=== PATIENT | male | born 1960 | race Caucasian/White ===

== ENCOUNTER 2018-04-23 07:09 | Inpatient (IN) | payer OTHER ==
--- NOTE | 2018-04-23 10:11 | ER Document Report ---
Doctor's Note Notes: 04/23/18 10:12 Room 13: This is a male in his 50s to the emergency department for evaluation of shortness of breath. Patient states that over the last several days he has had increased shortness of breath. Increased cough and wheeze. Often times his fingers get numb. Yesterday he felt like he was going to pass out. Having some tightness in the chest as well. Has had a workup in the past for heart problems. Family history of heart disease. Has some nitroglycerin. Decided to take some about 4 days ago. Denies any fever, chills, sweats. Does not smoke and is a smoker. Denies any other major issues at this time. Past medical history: Hypertension, COPD Past surgical history: Right nephrectomy Social history: Does smoke cigarettes. Denies any significant alcohol or drug abuse. Family history: Significant for coronary artery disease, COPD, hypertension Review of systems: Constitutional: denies: Chills, Diaphoresis, Fever, Malaise, Weakness EENT: denies: Eye discharge, Blurred vision, Tearing, Double vision, Nose congestion, Nose discharge, Throat swelling, Mouth pain Cardiovascular: denies: Does complain of tightness in the chest but no significant chest pain. No syncope. Respiratory: Does complain of shortness of breath, cough, wheezing Gastrointestinal: denies: Abdominal pain, Diarrhea, Nausea, Vomiting, Black stools, bright red blood in stool Genitourinary: denies: Burning, Dysuria, Discharge, Frequency, Flank pain, Hematuria Musculoskeletal: denies: Joint pain, Joint swelling, Muscle pain, Muscle stiffness, back pain Hematologic/Lymphatic: denies: Anemia, Easy bleeding, Easy bruising, Blood clots Neurological/Psychological: denies: Confusion, Dementia, Depression, Loss of consciousness Skin: No lesions, no masses, no skin breakdown, no abscesses Physical exam: General: Alert no acute distress HEENT: Atraumatic, normocephalic, pupils equal round react to light and accommodation, extraocular muscles are intact, nose is non tender, posterior pharynx is without erythema or exudate. Tongue is unremarkable Heart: Heart with regular rate and rhythm, no murmurs, no rubs, no clicks Lungs: Patient does have crackles and minimal wheezes bilaterally. Moving air. Equal chest rise. Abdomen: Abdomen is soft, nondistended, normal bowel sounds. Does complain of intermittent abdominal pain. Neuro: cranial nerves II through XII intact, reflexes intact, sensation intact, Musculoskeletal/Extremities:Moving all extremities. Equal strength bilaterally in the upper lower extremities. No significant deformity. No significant edema bilaterally of the upper lower extremities. Negative Homans. Pulses present bilateral lower extremities Skin: No lesions. Skin intact Discharge - Discharge Clinical Impression: Chest pain Qualifiers: Chest pain type: unspecified Qualified Code(s): R07.9 - Chest pain, unspecified Condition: Good Disposition: ADMITTED OBSERVATION Admitting Provider: Hospitalist - [facility] Unit Admitted: Telemetry Referrals: DALJIT GOMEZ PA-C [Primary Care Provider] - Follow up as needed Course - Re-evaluation Re-evalutation: 04/23/18 12:28 At this time patient's troponin is slightly elevated. Allergic to aspirin so given Plavix. Will admit to the hospital for further testing. 04/23/18 12:29 Laboratory 04/23/18 04/23/18 04/23/18 07:59 07:59 07:59 WBC 5.8 RBC 5.80 H Hgb 19.5 H Hct 56.0 H MCV 97 MCH 33.7 H MCHC 34.9 RDW 13.0 Plt Count 198 Seg Neutrophils % 56.1 Lymphocytes % 30.3 Monocytes % 9.8 Eosinophils % 2.9 Basophils % 0.9 Absolute Neutrophils 3.3 Absolute Lymphocytes 1.8 Absolute Monocytes 0.6 Absolute Eosinophils 0.2 Absolute Basophils 0.0 Sodium 138.8 Potassium 4.6 Chloride 103 Carbon Dioxide 27 Anion Gap 9 BUN 15 Creatinine 1.24 Est GFR ( Amer) > 60 Est GFR (Non-Af Amer) > 60 Glucose 108 Calcium 9.8 Total Bilirubin 0.6 Direct Bilirubin 0.4 Neonat Total Bilirubin Not Reportable Neonat Direct Bilirubin Not Reportable Neonat Indirect Bili Not Reportable AST 37 ALT 41 Alkaline Phosphatase 67 Troponin I 0.042 NT-Pro-B Natriuret Pep 90 Total Protein 8.2 Albumin 4.4 Chest X-Ray 04/23/18 00:00 IMPRESSION: NO ACUTE RADIOGRAPHIC FINDING IN THE CHEST. - Vital Signs Vital signs: Temp Pulse Resp BP Pulse Ox 15 97 04/23/18 10:09 04/23/18 10:09 - Laboratory Result Diagrams: 04/23/18 07:59 04/23/18 07:59 Laboratory results interpreted by me: 04/23/18 07:59 RBC 5.80 H Hgb 19.5 H Hct 56.0 H MCH 33.7 H - EKG Interpretation by Me EKG shows normal: Sinus rhythm, [place], Intervals, QRS Complexes, ST-T Waves
--- NOTE | 2018-04-23 10:35 | RADIOLOGY REPORT (SQ) ---
EXAM DESCRIPTION: CHEST 2 VIEWS COMPLETED DATE/TIME: 04/23/2018 9:28 am REASON FOR STUDY: SOB AND CHEST PAIN COMPARISON: None. EXAM PARAMETERS: NUMBER OF VIEWS: two views TECHNIQUE: Digital Frontal and Lateral radiographic views of the chest acquired. RADIATION DOSE: NA LIMITATIONS: none FINDINGS: LUNGS AND PLEURA: No opacities, masses or pneumothorax. No pleural effusion. MEDIASTINUM AND HILAR STRUCTURES: No masses or contour abnormalities. HEART AND VASCULAR STRUCTURES: Heart normal size. No evidence for failure. BONES: No acute findings. HARDWARE: None in the chest. OTHER: No other significant finding. IMPRESSION: NO ACUTE RADIOGRAPHIC FINDING IN THE CHEST. TECHNICAL DOCUMENTATION: JOB ID: [id number] [employer]- All Rights Reserved Reading location - IP/workstation name: [email or web address]
[2018-04-23 10:46] LABS: ALANINE AMINOTRANSFERASE 41 U/L (21-72); ALBUMIN 4.4 g/dL (3.5-5.0); ALKALINE PHOSPHATASE 67 U/L (38-126); ANION GAP 9 (5-19); ASPARTATE AMINO TRANSFERASE 37 U/L (17-59); BILIRUBIN,DIRECT 0.4 mg/dL (0.0-0.4); BILIRUBIN,TOTAL 0.6 mg/dL (0.2-1.3); BLOOD UREA NITROGEN 15 mg/dL (7-20); CALCIUM 9.8 mg/dL (8.4-10.2); CARBON DIOXIDE 27 mmol/L (22-30); CHLORIDE 103 mmol/L (98-107); GLUCOSE 108 mg/dL (75-110); POTASSIUM 4.6 mmol/L (3.6-5.0); SODIUM 138.8 mmol/L (137-145); TOTAL PROTEIN 8.2 g/dL (6.3-8.2)
[2018-04-23 11:15] LABS: TROPONIN I 0.042 ng/mL
[2018-04-23 11:18] LABS: ABSOLUTE EOSINOPHILS # (AUTO) 0.2 10^3/uL (0.0-0.6); ABSOLUTE LYMPHOCYTES (AUTO) 1.8 10^3/uL (0.5-4.7); ABSOLUTE MONOCYTES (AUTO) 0.6 10^3/uL (0.1-1.4); ABSOLUTE NEUT (AUTO) 3.3 10^3/uL (1.7-8.2); BASOPHILS % (AUTO) 0.9 % (0-2); EOSINOPHILS % (AUTO) 2.9 % (0-6); HEMOGLOBIN 19.5 g/dL (13.5-17.0); LYMPHOCYTES % (AUTO) 30.3 % (13-45); MEAN CORPUSCULAR HEMOGLOBIN 33.7 pg (27.0-33.4); MEAN CORPUSCULAR HGB CONC 34.9 g/dL (32.0-36.0); MEAN CORPUSCULAR VOLUME 97 fl (80-97); MONOCYTES % (AUTO) 9.8 % (3-13); PLATELET COUNT 198 10^3/uL (150-450); SEGMENTED NEUTROPHILS % (AUTO) 56.1 % (42-78); TOTAL CELLS COUNTED % (AUTO) 100 %; WHITE BLOOD COUNT 5.8 10^3/uL (4.0-10.5)
[2018-04-23] MEDS ORDERED: NITROGLYCERIN 2% OINTMENT 1 GM PACKET TP ONE (11:20)
[2018-04-23] MEDS ORDERED: CLOPIDOGREL BISULFATE 300 MG TABLET PO ONE (11:20)
[2018-04-23] MEDS ORDERED: ACETAMINOPHEN 325 MG TABLET PO ONE (12:49)
--- NOTE | 2018-04-23 13:24 | RADIOLOGY REPORT (SQ) ---
EXAM DESCRIPTION: U/S ABDOMEN COMPLETE W/DOPPLER COMPLETED DATE/TIME: 04/23/2018 1:02 pm REASON FOR STUDY: diffuse abd pain, COMPARISON: 11/24/2015 TECHNIQUE: Dynamic and static grayscale images acquired of the abdomen and recorded on PACS. Additio aurelio selected color Doppler and spectral images recorded. LIMITATIONS: Body habitus. Bowel gas. FINDINGS: PANCREAS: Not seen. LIVER: No masses. Increased echogenicity. LIVER VASCULATURE: Normal directional flow of the main portal vein and hepatic veins. GALLBLADDER: No stones. Normal wall thickness. No pericholecystic fluid. ULTRASOUND-DETECTED COLEMAN'S SIGN: Negative. INTRAHEPATIC DUCTS AND COMMON DUCT: Common bile duct is borderline at 6 mm. INFERIOR VENA CAVA: Not imaged. AORTA: No aneurysm. The midportion of the aorta was not well seen, however. RIGHT KIDNEY: Surgically absent. LEFT KIDNEY: Compensatory hypertrophy. 15.8 cm. Normal echogenicity. No solid or suspicious mas ses. No hydronephrosis. No calcifications. SPLEEN: Normal size. No solid masses. PERITONEAL AND PLEURAL SPACES: No ascites or effusions. OTHER: No other significant finding. IMPRESSION: Fatty infiltration of the liver. Borderline common bile duct. Correlate for biliary ob struction. TECHNICAL DOCUMENTATION: JOB ID: [id number] [employer]- All Rights Reserved Reading location - IP/workstation name: [email or web address]
[2018-04-23 13:42] LABS: AMORPHOUS SEDIMENT,URINE 2+ /HPF; APPEARANCE,URINE TURBID; BILIRUBIN,URINE NEGATIVE (NEGATIVE); GLUCOSE, URINE NEGATIVE (NEGATIVE); KETONES,URINE NEGATIVE (NEGATIVE); LEUKOCYTE ESTERASE,URINE TRACE (NEGATIVE); NITRITE,URINE NEGATIVE (NEGATIVE); PROTEIN,URINE 100 mg/dL (NEGATIVE); URINE SPECIFIC GRAVITY 1.025; UROBILINOGEN,URINE NEGATIVE mg/dL (<2.0)
[2018-04-23 13:52] LABS: COLOR,URINE YELLOW
[2018-04-23] MEDS ORDERED: GUAIFENESIN SYRP 200 MG/10 ML UDC PO PRN (14:43)
[2018-04-23] MEDS ORDERED: NORMAL SALINE 1000 ML 1,000 ML IV PRN (14:43)
[2018-04-23] MEDS: IPRATROPIUM/ALBUTEROL 0.5-2.5 MG/3 ML AMPUL NEB PRN (15:42)
[2018-04-23] MEDS ORDERED: IPRATROPIUM/ALBUTEROL 0.5-2.5 MG/3 ML AMPUL NEB SCH (16:00)
[2018-04-23] MEDS: VALSARTAN 80 MG TABLET PO SCH (18:08)
[2018-04-23] MEDS: PREDNISONE 20 MG TABLET PO SCH (18:16)
[2018-04-23] MEDS: LANSOPRAZOLE 30 MG TAB.RAP.DR PO SCH (18:16)
--- NOTE | 2018-04-23 18:36 | EKG REPORT ---
SEVERITY:- NORMAL ECG - SINUS RHYTHM : Confirmed by: Salazar Lawson MD 23-Apr-2018 18:36:21
[2018-04-23] MEDS ORDERED: ACETAMINOPHEN 325 MG TABLET PO PRN (20:49)
--- NOTE | 2018-04-23 21:19 | RADIOLOGY REPORT (SQ) ---
PROCEDURE: CT OF THE ABDOMEN AND PELVIS WITH INTRAVENOUS CONTRAST HISTORY: Abdominal Pain, Hematuria Indication: Same as above Comparison: 11/13/2017 . Technique: CT of the abdomen and pelvis was done with intravenous contrast. Images were obtained from the lung base to the level of the pubic symphysis in axial plane, followed by orthogonal sagittal and coronal reconstruction. Oral contrast was not given for the study. The patient was injected with radiographic contrast intravenously, without any documented immediate adverse reactions. This exam was performed according to our departmental dose-optimization program, which includes automated exposure control, adjustment of the mA and/or KV according to the patient's size and/or use of iterative reconstruction technique. FINDINGS: Images through the lung bases do not show any focal infiltrates or pleural effusions. The gallbladder, pancreas, spleen and the bilateral adrenal glands appear unremarkable. There is fatty metamorphosis of the liver The right kidney surgically absent. The left kidney enhances in a normal fashion The urinary bladder is unremarkable . The small bowel appears unremarkable, without any evidence of small bowel obstruction or bowel wall thickening. There is no CT evidence of acute appendicitis, pericecal inflammatory change or ileocecal mesenteric adenitis. The ileocecal junction appears unremarkable. There is no CT evidence of acute colonic diverticulitis or colitis or large bowel obstruction. There is large bowel diverticulosis The splenic and portal veins are of normal caliber, without any filling defects. There is no pathological lymphadenopathy in the retroperitoneum or in the pelvic region. There is no evidence of free fluid or free air in the abdomen or the pelvic region. There is no clinically significant abdominal aortic aneurysm. There is no clinically significant inguinal or ventral hernia. The visualized lumbar spine is unremarkable . The paravertebral soft tissues are unremarkable. The remainder of the pelvic structures are unremarkable. IMPRESSION: Fatty metamorphosis of the liver. Large bowel diverticulosis, without acute diverticulitis. Prior right nephrectomy. Location of Interpretation: Teleradiology
[2018-04-23] MEDS: ATORVASTATIN CALCIUM 40 MG TABLET PO SCH (23:41)
[2018-04-23] MEDS: HEPARIN SOD (PORCINE) 5,000 UNIT/ML 1 ML SYRINGE SUBCUT SCH (23:42)
[2018-04-24] MEDS: IPRATROPIUM/ALBUTEROL 0.5-2.5 MG/3 ML AMPUL NEB PRN (05:15)
[2018-04-24 05:17] LABS: APPEARANCE,URINE CLEAR; BILIRUBIN,URINE NEGATIVE (NEGATIVE); COLOR,URINE YELLOW; GLUCOSE, URINE NEGATIVE (NEGATIVE); KETONES,URINE NEGATIVE (NEGATIVE); LEUKOCYTE ESTERASE,URINE NEGATIVE (NEGATIVE); NITRITE,URINE NEGATIVE (NEGATIVE); PROTEIN,URINE NEGATIVE (NEGATIVE); URINE SPECIFIC GRAVITY 1.024; UROBILINOGEN,URINE NEGATIVE mg/dL (<2.0)
[2018-04-24] MEDS: HEPARIN SOD (PORCINE) 5,000 UNIT/ML 1 ML SYRINGE SUBCUT SCH ×3 (05:31→23:18)
[2018-04-24] MEDS: LANSOPRAZOLE 30 MG TAB.RAP.DR PO SCH ×2 (05:32→17:58)
[2018-04-24 05:33] LABS: HEMATOCRIT 50.8 % (37.9-51.0); HEMOGLOBIN 17.6 g/dL (13.5-17.0); MEAN CORPUSCULAR HEMOGLOBIN 33.6 pg (27.0-33.4); MEAN CORPUSCULAR HGB CONC 34.6 g/dL (32.0-36.0); MEAN CORPUSCULAR VOLUME 97 fl (80-97); PLATELET COUNT 178 10^3/uL (150-450); RED BLOOD COUNT 5.23 10^6/uL (4.35-5.55); RED CELL DISTRIBUTION WIDTH 12.7 % (11.5-14.0); WHITE BLOOD COUNT 6.1 10^3/uL (4.0-10.5)
[2018-04-24 06:06] LABS: ALANINE AMINOTRANSFERASE 36 U/L (21-72); ALBUMIN 4.1 g/dL (3.5-5.0); ALKALINE PHOSPHATASE 54 U/L (38-126); ANION GAP 11 (5-19); ASPARTATE AMINO TRANSFERASE 29 U/L (17-59); BILIRUBIN,DIRECT 0.3 mg/dL (0.0-0.4); BILIRUBIN,TOTAL 0.8 mg/dL (0.2-1.3); BLOOD UREA NITROGEN 16 mg/dL (7-20); CALCIUM 9.4 mg/dL (8.4-10.2); CARBON DIOXIDE 22 mmol/L (22-30); CHLORIDE 102 mmol/L (98-107); GLUCOSE 131 mg/dL (75-110); POTASSIUM 4.8 mmol/L (3.6-5.0); SODIUM 134.9 mmol/L (137-145); TOTAL PROTEIN 7.2 g/dL (6.3-8.2)
[2018-04-24] MEDS ORDERED: AMLODIPINE BESYLATE 5 MG TABLET PO SCH (10:00)
[2018-04-24] MEDS: CLOPIDOGREL BISULFATE 75 MG TABLET PO SCH (10:47)
[2018-04-24] MEDS: VALSARTAN 80 MG TABLET PO SCH (10:47)
[2018-04-24] MEDS: PREDNISONE 20 MG TABLET PO SCH (10:47)
--- NOTE | 2018-04-24 13:15 | EKG REPORT ---
SEVERITY:- NORMAL ECG - SINUS RHYTHM : Confirmed by: Salazar Lawson MD 24-Apr-2018 13:14:28
--- NOTE | 2018-04-24 13:51 | DRAGON STRESS TEST REPORT ---
INTRAVENOUS LEXISCAN CARDIOLITE STRESS TEST USING SINGLE PHOTON EMMISION COMPUTERIZED TOMOGRAPHIC. DATE OF PROCEDURE: April 24, 2018, INDICATION : Chest pain, hypertension, family history of premature CAD RESTING EKG: Sinus rhythm, otherwise WNL STRESS EKG: No significant ST segment changes noted with LexiScan bolus REASON FOR TERMINATION: Protocol. PROCEDURE REPORT: Baseline heart rate 74 beats per minute with blood pressure of 157/88. Patient had no significant complaints. Patient was bolused with Lexiscan 0.4 mg intravenously followed by saline bolus. Heart rate at 2 minutes post bolus 122 with a blood pressure of 192/100. 3 minutes post bolus heart rate 116 with blood pressure of 164/100. No significant EKG changes were noted. Patient had no significant complaints during the procedure or postprocedure. CONCLUSIONS: Normal EKG and hemodynamic response to IV LexiScan. NUCLEAR DATA: At rest the patient was given 14.84 millicuries of technetium 99 sestamibi injected intravenously. As per protocol rest gated SPECT images were obtained. On day of stress test, the patient was given intravenous LexiScan at a dose of 0.4 mg in 5 mL intravenously, followed by flush with normal saline. Subsequently the stress dose of 46.3 millicuries of technetium 99 sestamibi was injected intravenously. As per protocol stress gated images were obtained. NUCLEAR INTERPRETATION: Both raw and processed data were used for interpretation. Visual, qualitative, computer-generated quantitative data was used. There was good myocardial uptake of technetium compound. Motion artifact and soft tissue attenuations were noted. Increased visceral uptake was noted. Decreased uptake was noted in the inferior wall and stress imaging but felt to be related to attenuation artifact rather than to defect. No definitive areas of transient perfusion defect noted, No definitive areas of fixed perfusion defect or scars noted. EKG gated imaging showed LV EF at 57 %, rest and stress gated EF similar visually. T. I D. ratio was 1.14. Lung heart ratio noted to be within normal limits 0.25. No significant extracardiac and abnormal radiotracer activities were noted. RV free wall uptake was noted to be WNL. IMPRESSION: Also refer to comments under nuclear interpretation. Also test results needs to be interpreted in the context of pretest probability. 1. No definitive areas of transient perfusion defect noted. Mild decreased uptake noted in the inferior wall and stress imaging but is felt to be due to attenuation artifact. May need to consider a stress echo as an outpatient. 2. There is no definitive scintigraphic evidence of myocardial infarction/scar. 3. EKG gated imaging shows left ventricular ejection fraction of approx. [57] % . 4. Clinical correlation requested as worse disease and or balanced ischemia could be missed. In approximately 10% of the cases Lexiscan may not cause adequate vasodilatory stress. RECOMMENDATIONS: Aggressive risk factor modification and medical management. Further evaluation may be needed if continued symptoms or other high risk indicators are noted on clinical evaluation. Close cardiology follow-up is also recommended. Clinical correlation with echocardiogram derived ejection fraction. Inability to exercise by itself can lead to increased cardiovascular event risks. Consider cardiology consultation and or follow-up if clinically indicated. I am available for cardiology evaluation and consultation if requested by the leather stripping machine operator, unless patient already has a manufacturing engineer automotive. Dr. Christopher Bullard. MRCP Board certified in cardiology and sleep medicine. Board certified in nuclear cardiology, adult echocardiography. ELICIA
--- NOTE | 2018-04-24 14:32 | PDOC H&P ---
History of Present Illness Admission Date/PCP: 04/23/18 13:03 DALJIT GOMEZ PA-C Patient complains of: Chest Pain, SOB History of Present Illness: VENKAT BENTLEY is a 58 year old male past medical history of hypertension, COPD ( current heavy smoker , 40 years), hyperlipidemia, right nephrectomy in 1977 due to a sport accident. Patient is complaining of chest pain over the last several days. He has been having several episodes of chest pain since last . He also states that he has been having chronic chest pain but this is different. Today in the morning when he was resting and he got up to get his inhaler he started feeling short of breath with tightness in his chest and pressure-like chest pain radiating to both arms, chest pain lasted about 5 minutes, and resolved when patient rested. He states the previous episodes have been similar. Also mentioned that his thumbs gets numb and also recently has noticed that he is been having lower extremity tingling and swelling. 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 Brother had several heart attacks starting in his 40s and mother has a pacemaker but he does not remember when she had heart attack. He had a right nephrectomy in 1977 due to a sport accident. He states sometimes he notices dark urine but denies any hematuria He denies any fever, nausea, vomiting, diarrhea, abdominal pain, constipation, urinary symptoms. Past Medical History Cardiac Medical History: Reports: Coronary Artery Disease, Hyperlipidema, Hypertension Denies: Myocardial Infarction Pulmonary Medical History: Reports: Chronic Obstructive Pulmonary Disease (COPD) Denies: Asthma, Bronchitis, Pneumonia Neurological Medical History: Denies: Seizures Endocrine Medical History: Denies: Diabetes Mellitus Type 2 GI Medical History: Denies: Gastroesophageal Reflux Disease Musculoskeltal Medical History: Denies: Arthritis Psychiatric Medical History: Reports: Depression Hematology: Denies: Anemia Social History Smoking Status: Current Every Day Smoker Frequency of Alcohol Use: Occasional Hx Recreational Drug Use: No Drugs: None Hx Prescription Drug Abuse: No - Advance Directive Resuscitation Status: Full Code Family History Family History: Reviewed & Not Pertinent, CAD, Hypertension, Other - Brother, mother Parental Family History Reviewed: Yes - CAD Children Family History Reviewed: Yes Sibling(s) Family History Reviewed.: Yes Medication/Allergy Home Medications: Amlodipine Besylate [Norvasc 5 mg Tablet] 10 mg PO DAILY 04/23/18 Allergies/Adverse Reactions: hydromorphone HCl [From Dilaudid] Adverse Reaction (Unknown, Verified 11/24/15 20:19) Nausea Review of Systems Constitutional: ABSENT: chills, fever(s), headache(s), weight gain, weight loss Eyes: ABSENT: visual disturbances Ears: ABSENT: hearing changes Cardiovascular: PRESENT: chest pain. ABSENT: dyspnea on exertion, edema, orthropnea, palpitations Respiratory: PRESENT: dyspnea. ABSENT: cough, hemoptysis Gastrointestinal: ABSENT: abdominal pain, constipation, diarrhea, hematemesis, hematochezia, nausea, vomiting Genitourinary: ABSENT: dysuria, hematuria Musculoskeletal: ABSENT: joint swelling Integumentary: ABSENT: rash, wounds Neurological: PRESENT: paresthesias, tingling. ABSENT: abnormal gait, abnormal speech, confusion, dizziness, focal weakness, syncope Psychiatric: ABSENT: anxiety, depression, homidical ideation, suicidal ideation Endocrine: ABSENT: cold intolerance, heat intolerance, polydipsia, polyuria Hematologic/Lymphatic: ABSENT: easy bleeding, easy bruising Physical Exam Vital Signs: Temp Pulse Resp BP Pulse Ox 8 L 117/84 97 04/23/18 12:01 04/23/18 12:00 04/23/18 12:01 Intake & Output 04/22/18 04/23/18 04/24/18 06:59 06:59 06:59 Weight 108.9 kg General appearance: PRESENT: no acute distress, obese, well-developed, well- nourished Head exam: PRESENT: atraumatic, normocephalic Eye exam: PRESENT: conjunctiva pink, EOMI, PERRLA. ABSENT: scleral icterus Ear exam: PRESENT: normal external ear exam Mouth exam: PRESENT: moist, tongue midline Neck exam: ABSENT: carotid bruit, JVD, lymphadenopathy, thyromegaly Respiratory exam: PRESENT: clear to auscultation sindy. ABSENT: rales, rhonchi, wheezes Cardiovascular exam: PRESENT: RRR. ABSENT: diastolic murmur, rubs, systolic murmur Pulses: PRESENT: normal dorsalis pedis pul Vascular exam: PRESENT: normal capillary refill GI/Abdominal exam: PRESENT: normal bowel sounds, soft. ABSENT: distended, guarding, mass, organolmegaly, rebound, tenderness Rectal exam: PRESENT: deferred Extremities exam: PRESENT: full ROM. ABSENT: calf tenderness, clubbing, pedal edema Neurological exam: PRESENT: alert, awake, oriented to person, oriented to place , oriented to time, oriented to situation, CN II-XII grossly intact. ABSENT: motor sensory deficit Psychiatric exam: PRESENT: appropriate affect, normal mood. ABSENT: homicidal ideation, suicidal ideation Skin exam: PRESENT: dry, intact, warm. ABSENT: cyanosis, rash Results Impressions: Chest X-Ray 04/23/18 00:00 IMPRESSION: NO ACUTE RADIOGRAPHIC FINDING IN THE CHEST. Abdomen Ultrasound 04/23/18 11:07 IMPRESSION: Fatty infiltration of the liver. Borderline common bile duct. Correlate for biliary obstruction. Assessment & Plan - Diagnosis (1) Chest pain Qualifiers: Chest pain type: unspecified Qualified Code(s): R07.9 - Chest pain, unspecified Is this a current diagnosis for this admission?: Yes Plan: No acute EKG changes, troponin is mildly elevated at 0.046. Start on Plavix, atorvastatin, and ARB. Consult cardiology for possible stress test and echocardiography for further risk stratification. (2) Erythrocytosis Is this a current diagnosis for this admission?: Yes Plan: Likely due to chronic smoking and COPD. Patient also has hematuria however he says he had a right nephrectomy due to his poor accident. Will consult urology for possible cystoscopy. (3) Tobacco dependence Is this a current diagnosis for this admission?: Yes Plan: Advised on quitting. Will place on nicotine patch (4) Hyperlipidemia Is this a current diagnosis for this admission?: Yes Plan: Start on diet modification. Continue statins
[2018-04-24] MEDS ORDERED: NICOTINE 14 MG/24 HR PATCH.TD24 TD PRN (14:33)
--- NOTE | 2018-04-24 14:42 | PDOC PROGRESS REPORT ---
Subjective Progress Note for:: 04/24/18 Subjective:: Patient chest pain has resolved. Patient did not have a recurrence of the chest pain since admission. Patient is p.o. tolerant ambulatory. Denies any fever, chills, nausea, vomiting, chest pain, shortness of breath, abdominal pain , urinary symptoms or any diarrhea or constipation Reason For Visit: CHEST PAIN Physical Exam Vital Signs: Temp Pulse Resp BP Pulse Ox 98.0 F 81 16 146/90 H 95 04/24/18 11:20 04/24/18 13:31 04/24/18 13:31 04/24/18 11:20 04/24/18 13:31 Intake & Output 04/23/18 04/24/18 04/25/18 06:59 06:59 06:59 Intake Total 645 Balance 645 Weight 108.6 kg Results Laboratory Results: 04/24/18 04:20 04/24/18 04:20 04/24/18 04/24/18 04/24/18 04:20 04:20 04:30 WBC 6.1 RBC 5.23 Hgb 17.6 H Hct 50.8 MCV 97 MCH 33.6 H MCHC 34.6 RDW 12.7 Plt Count 178 Sodium 134.9 L Potassium 4.8 Chloride 102 Carbon Dioxide 22 Anion Gap 11 BUN 16 Creatinine 1.17 Est GFR ( Amer) > 60 Est GFR (Non-Af Amer) > 60 Glucose 131 H Calcium 9.4 Total Bilirubin 0.8 AST 29 ALT 36 Alkaline Phosphatase 54 Total Protein 7.2 Albumin 4.1 Urine Color YELLOW Urine Appearance CLEAR Urine pH 7.0 Ur Specific [place] 1.024 Urine Protein NEGATIVE Urine Glucose (UA) NEGATIVE Urine Ketones NEGATIVE Urine Blood SMALL H Urine Nitrite NEGATIVE Ur Leukocyte Esterase NEGATIVE Urine RBC (Auto) 1 04/24/18 04/24/18 04/24/18 04:20 06:51 13:04 Troponin I 0.025 0.028 NT-Pro-B Natriuret Pep 80 Impressions: Abdomen/Pelvis CT 04/23/18 00:00 IMPRESSION: Fatty metamorphosis of the liver. Large bowel diverticulosis, without acute diverticulitis. Prior right nephrectomy. Location of Interpretation: Teleradiology Chest X-Ray 04/23/18 00:00 IMPRESSION: NO ACUTE RADIOGRAPHIC FINDING IN THE CHEST. Abdomen Ultrasound 04/23/18 11:07 IMPRESSION: Fatty infiltration of the liver. Borderline common bile duct. Correlate for biliary obstruction. Assessment & Plan - Diagnosis (1) Chest pain Qualifiers: Chest pain type: unspecified Qualified Code(s): R07.9 - Chest pain, unspecified Is this a current diagnosis for this admission?: Yes Plan: Resolved. No acute EKG changes, troponin is mildly elevated at 0.046. Start on Plavix, atorvastatin, and ARB. Urology consulted. Status post stress test. Pending formal cardiology consult. (2) Erythrocytosis Is this a current diagnosis for this admission?: Yes Plan: Improving. Likely due to chronic smoking and COPD. Patient also has hematuria however he says he had a right nephrectomy due to his poor accident. Will consult urology for possible cystoscopy. (3) Tobacco dependence Is this a current diagnosis for this admission?: Yes Plan: Advised on quitting. placed on nicotine patch (4) Hyperlipidemia Is this a current diagnosis for this admission?: Yes Plan: Start on diet modification. Continue statins (5) Obstructive chronic bronchitis with exacerbation Is this a current diagnosis for this admission?: Yes Plan: Neck treatments. Patient is a heavy smoker and was advised to quit smoking. (6) Hematemesis Is this a current diagnosis for this admission?: Yes Plan: UA was positive for hematuria on admission however patient denies any santa hematuria. The fact the patient is a heavy smoker of 40 years and also had a right nephrectomy that he states was due to a sport injury. He is high risk for bladder cancer. Consulted urology for possible cystoscopy.
[2018-04-24] MEDS ORDERED: REGADENOSON INJ 0.4 MG/5 ML DISP.SYRIN IV ONE (14:57)
--- NOTE | 2018-04-24 15:58 | PDOC CONSULTATION ---
Consultation Consult Date: 04/24/18 Consult reason:: microscopic hematuria History of Present Illness Admission Date/PCP: 04/23/18 13:03 DALJIT GOMEZ PA-C History of Present Illness: VENKAT BENTLEY is a 58 year old male Past Medical History Cardiac Medical History: Reports: Coronary Artery Disease, Hyperlipidema, Hypertension Denies: Myocardial Infarction Pulmonary Medical History: Reports: Chronic Obstructive Pulmonary Disease (COPD) Denies: Asthma, Bronchitis, Pneumonia Neurological Medical History: Denies: Seizures Endocrine Medical History: Denies: Diabetes Mellitus Type 2 GI Medical History: Denies: Gastroesophageal Reflux Disease Musculoskeltal Medical History: Denies: Arthritis Psychiatric Medical History: Reports: Depression Hematology: Denies: Anemia Social History Smoking Status: Current Every Day Smoker Frequency of Alcohol Use: Occasional Hx Recreational Drug Use: No Drugs: None Hx Prescription Drug Abuse: No - Advance Directive Resuscitation Status: Full Code Family History Family History: Reviewed & Not Pertinent, CAD, Hypertension, Other - Brother, mother Parental Family History Reviewed: No Children Family History Reviewed: No Sibling(s) Family History Reviewed.: No Medication/Allergy Home Medications: Amlodipine Besylate [Norvasc 5 mg Tablet] 10 mg PO DAILY 04/23/18 Allergies/Adverse Reactions: hydromorphone HCl [From Dilaudid] Adverse Reaction (Unknown, Verified 11/24/15 20:19) Nausea Physical Exam Vital Signs: Temp Pulse Resp BP Pulse Ox 98.0 F 81 16 146/90 H 95 04/24/18 11:20 04/24/18 13:31 04/24/18 13:31 04/24/18 11:20 04/24/18 13:31 Intake & Output 04/23/18 04/24/18 04/25/18 06:59 06:59 06:59 Intake Total 645 Balance 645 Weight 108.6 kg Results Laboratory Results: 04/24/18 04:20 04/24/18 04:20 04/24/18 04/24/18 04/24/18 04:20 04:20 04:30 WBC 6.1 RBC 5.23 Hgb 17.6 H Hct 50.8 MCV 97 MCH 33.6 H MCHC 34.6 RDW 12.7 Plt Count 178 Sodium 134.9 L Potassium 4.8 Chloride 102 Carbon Dioxide 22 Anion Gap 11 BUN 16 Creatinine 1.17 Est GFR ( Amer) > 60 Est GFR (Non-Af Amer) > 60 Glucose 131 H Calcium 9.4 Total Bilirubin 0.8 AST 29 ALT 36 Alkaline Phosphatase 54 Total Protein 7.2 Albumin 4.1 Urine Color YELLOW Urine Appearance CLEAR Urine pH 7.0 Ur Specific [place] 1.024 Urine Protein NEGATIVE Urine Glucose (UA) NEGATIVE Urine Ketones NEGATIVE Urine Blood SMALL H Urine Nitrite NEGATIVE Ur Leukocyte Esterase NEGATIVE Urine RBC (Auto) 1 04/24/18 04/24/18 04/24/18 04:20 06:51 13:04 Troponin I 0.025 0.028 NT-Pro-B Natriuret Pep 80 Impressions: Abdomen/Pelvis CT 04/23/18 00:00 IMPRESSION: Fatty metamorphosis of the liver. Large bowel diverticulosis, without acute diverticulitis. Prior right nephrectomy. Location of Interpretation: [facility] Chest X-Ray 04/23/18 00:00 IMPRESSION: NO ACUTE RADIOGRAPHIC FINDING IN THE CHEST. Abdomen Ultrasound 04/23/18 11:07 IMPRESSION: Fatty infiltration of the liver. Borderline common bile duct. Correlate for biliary obstruction. Assessment & Plan - Diagnosis (1) Solitary kidney, acquired Is this a current diagnosis for this admission?: Yes - Plan Summary Plan Summary: This patient is a 58-year-old male with heart disease is admitted for chest pain. He says he feels better now. He has no urinary symptoms at all at this time. He has a remote history of losing a kidney at age 17 to trauma therefore has a solitary kidney. Urinalysis on admission showed 5 RBCs per high-power field, repeated showed 1 RBC per high-power field. This does not meet the threshold for microscopic hematuria. No workup is necessary at this time. He does admit to cigarette abuse and therefore should be monitored from the perspective. Plan: Repeat microscopic urinalysis at primary care physician's office in 1 month. If the patient has greater than 5 RBCs per high-power field, a hematuria workup should be undertaken at that time. The patient continues to smoke, a routine yearly urinalysis would be appropriate.
[2018-04-24] MEDS ORDERED: AMLODIPINE BESYLATE 5 MG TABLET PO ONE (18:30)
[2018-04-24] MEDS: ATORVASTATIN CALCIUM 40 MG TABLET PO SCH (21:25)
[2018-04-24] MEDS ORDERED: TEMAZEPAM 15 MG CAPSULE PO ONE (22:00)
--- NOTE | 2018-04-24 23:16 | PDOC PROGRESS REPORT ---
Subjective Progress Note for:: 04/24/18 Subjective:: Patient noted to be doing better without any recurrent chest pain. Patient did undergo a nuclear stress test without any complications. Nuclear stress test results were fairly unremarkable. Patient continues with shortness of breath. Telemetry shows no significant cardiac dysrhythmias. Reason For Visit: CHEST PAIN Physical Exam Vital Signs: Temp Pulse Resp BP Pulse Ox 97.8 F 98 19 192/96 H 97 04/24/18 19:14 04/24/18 19:14 04/24/18 19:14 04/24/18 19:14 04/24/18 19:14 Intake & Output 04/23/18 04/24/18 04/25/18 06:59 06:59 06:59 Intake Total 645 266 Balance 645 266 Weight 108.6 kg Exam: GENERAL: well-nourished and in no acute distress. Alert and oriented x3 HEAD: Atraumatic, normocephalic. EYES: Pupils equal round and reactive to light, extraocular movements intact, sclera anicteric, conjunctiva are normal. ENT: TMs normal, nares patent, oropharynx clear without exudates. Moist mucous membranes. No oral ulcerations or bleeding gums noted NECK: supple without lymphadenopathy. Trachea is central. No cervical or axillary lymphadenopathy noted. Carotids are 2+, JVD WNL LUNGS: Respiration seems nonlabored, no significant accessory muscle action noted. Breath sounds clear to auscultation bilaterally and equal noted. No wheezes rales or rhonchi noted. No significant dullness noted on percussion. CHEST: Palpation of the chest wall shows no significant chest wall tenderness. 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 ABDOMEN: Soft, no significant tenderness appreciated, normoactive bowel sounds. No guarding, no rebound. No rigidity noted . No masses appreciated. EXTREMITIES: Pedal pulses are 1-2+, no calf tenderness noted. No clubbing or cyanosis. negative pedal edema noted NEUROLOGICAL: Focused neurological exam showed no significant neurologic deficit. Normal speech, no focal weakness appreciated. PSYCH: Normal mood, normal affect. Judgment and insight within normal limits. SKIN: No significant ecchymosis, skin is noted to be warm. MUSCULOSKELETAL EXAM: No significant acute joint swelling noted. Results Laboratory Results: 04/24/18 04:20 04/24/18 04:20 04/24/18 04/24/18 04/24/18 04:20 04:20 04:30 WBC 6.1 RBC 5.23 Hgb 17.6 H Hct 50.8 MCV 97 MCH 33.6 H MCHC 34.6 RDW 12.7 Plt Count 178 Sodium 134.9 L Potassium 4.8 Chloride 102 Carbon Dioxide 22 Anion Gap 11 BUN 16 Creatinine 1.17 Est GFR ( Amer) > 60 Est GFR (Non-Af Amer) > 60 Glucose 131 H Calcium 9.4 Total Bilirubin 0.8 AST 29 ALT 36 Alkaline Phosphatase 54 Total Protein 7.2 Albumin 4.1 Urine Color YELLOW Urine Appearance CLEAR Urine pH 7.0 Ur Specific [place] 1.024 Urine Protein NEGATIVE Urine Glucose (UA) NEGATIVE Urine Ketones NEGATIVE Urine Blood SMALL H Urine Nitrite NEGATIVE Ur Leukocyte Esterase NEGATIVE Urine RBC (Auto) 1 04/24/18 04/24/18 04/24/18 04:20 06:51 13:04 Troponin I 0.025 0.028 NT-Pro-B Natriuret Pep 80 04/24/18 20:10 Troponin I 0.017 NT-Pro-B Natriuret Pep EKG Comments: Telemetry shows sinus rhythm without any sustained tachycardia or bradycardia. Impressions: Abdomen/Pelvis CT 04/23/18 00:00 IMPRESSION: Fatty metamorphosis of the liver. Large bowel diverticulosis, without acute diverticulitis. Prior right nephrectomy. Location of Interpretation: [facility] Chest X-Ray 04/23/18 00:00 IMPRESSION: NO ACUTE RADIOGRAPHIC FINDING IN THE CHEST. Abdomen Ultrasound 04/23/18 11:07 IMPRESSION: Fatty infiltration of the liver. Borderline common bile duct. Correlate for biliary obstruction. Assessment & Plan - Diagnosis (1) COPD (chronic obstructive pulmonary disease) Qualifiers: COPD type: unspecified COPD Qualified Code(s): J44.9 - Chronic obstructive pulmonary disease, unspecified Is this a current diagnosis for this admission?: Yes (2) Chest pain Qualifiers: Chest pain type: unspecified Qualified Code(s): R07.9 - Chest pain, unspecified Is this a current diagnosis for this admission?: Yes (3) Erythrocytosis Is this a current diagnosis for this admission?: Yes (4) Hypertension Qualifiers: Hypertension type: essential hypertension Qualified Code(s): I10 - Essential (primary) hypertension Is this a current diagnosis for this admission?: Yes (5) Renal insufficiency Is this a current diagnosis for this admission?: Yes (6) Hyperlipidemia Qualifiers: Hyperlipidemia type: unspecified Qualified Code(s): E78.5 - Hyperlipidemia , unspecified Is this a current diagnosis for this admission?: Yes (7) Tobacco dependence Is this a current diagnosis for this admission?: Yes - Notes Notes: Chest pain: Patient claims this has resolved. Nuclear stress test was fairly unremarkable. Have ordered a 2D echo. Patient may benefit from better control of blood pressure and close cardiology follow-up. Hypertension: Blood pressure goal in this patient is 135/85 or less. This was discussed with the patient. Currently blood pressure under reasonable control. Better medication for this patient are JESSICA inhibitor/ARB/beta chioma etc. discussed side effects of uncontrolled hypertension and also severe hypotension. Renal insufficiency: Patient noted to have mild renal insufficiency. He is noted to have just one kidney other kidney being surgically absent. Discussed avoidance of nonsteroidal anti-inflammatory and other potential nephrotoxic agents. Hyperlipidemia: LDL goal is less than 70. Recommend statin therapy at least intermediate or high dose, of high potency status. Periodic lipid panel and liver panel is indicated. Patient to report any significant muscle discomfort or other side effects. Tobacco abuse: Patient advised in tobacco cessation. COPD: Patient noted to have significant COPD. Patient advised against tobacco smoking. Continue current steroids and inhaler therapy as prescribed by the other physician. Erythrocytosis: Possibly related to COPD but patient may have nocturnal hypoxemia. Patient does have history of snoring. Have discussed further evaluation with a sleep study as an outpatient. - Time Time with patient: Greater than 35 minutes - More than 50% of the time spent coordinating care, discussing management plans with involved caregivers. Management plans discussed with involved personnels. Medical decision making was of moderate to high complexity, patient's has multiple comorbidities. Patient was seen multiple times. Total time exceeds 40 minutes. In the morning nuclear stress test procedure, risks benefits, alternatives were discussed. Patient seen during the stress test. Patient also seen after stress test when results were discussed with the patient in detail. Patient's questions were answered. Nuclear stress test results were discussed with the patient. Patient was informed that no definitive evidence of pharmacologic stress- induced ischemia noted. No definite fixed defects were noted. Patient informed that occasionally significant single vessel disease or balanced ischemia could be missed. However based on the current study results, would recommend aggressive risk factor modification and medical therapy. It may also be worthwhile to consider evaluation or empiric management of other causes of chest pain. Should no other cause be found and if persistent in having chest pain, then cardiac catheterization should be considered. Right now, recommendations are for aggressive risk factor modification and medical management. Medications reviewed and adjusted accordingly: Yes
[2018-04-25] MEDS: HEPARIN SOD (PORCINE) 5,000 UNIT/ML 1 ML SYRINGE SUBCUT SCH ×3 (05:18→21:49)
[2018-04-25] MEDS: LANSOPRAZOLE 30 MG TAB.RAP.DR PO SCH ×2 (05:18→18:02)
[2018-04-25 08:57] LABS: ALANINE AMINOTRANSFERASE 45 U/L (21-72); ALBUMIN 4.3 g/dL (3.5-5.0); ALKALINE PHOSPHATASE 51 U/L (38-126); ANION GAP 11 (5-19); ASPARTATE AMINO TRANSFERASE 31 U/L (17-59); BILIRUBIN,DIRECT 0.3 mg/dL (0.0-0.4); BILIRUBIN,TOTAL 0.6 mg/dL (0.2-1.3); BLOOD UREA NITROGEN 17 mg/dL (7-20); CALCIUM 9.6 mg/dL (8.4-10.2); CARBON DIOXIDE 26 mmol/L (22-30); CHLORIDE 101 mmol/L (98-107); GLUCOSE 90 mg/dL (75-110); POTASSIUM 4.1 mmol/L (3.6-5.0); SODIUM 137.6 mmol/L (137-145); TOTAL PROTEIN 7.5 g/dL (6.3-8.2)
[2018-04-25] MEDS: AMLODIPINE BESYLATE 10 MG TABLET PO SCH (09:45)
[2018-04-25] MEDS: VALSARTAN 160 MG TABLET PO SCH (09:46)
[2018-04-25] MEDS: PREDNISONE 20 MG TABLET PO SCH (09:46)
[2018-04-25] MEDS: CLOPIDOGREL BISULFATE 75 MG TABLET PO SCH (09:47)
[2018-04-25] MEDS ORDERED: LEVOFLOXACIN 750 MG/D5W RTU 750 MG/150 ML RTUPB IV SCH (11:00)
[2018-04-25] MEDS: IPRATROPIUM/ALBUTEROL 0.5-2.5 MG/3 ML AMPUL NEB PRN (12:08)
--- NOTE | 2018-04-25 12:08 | RADIOLOGY REPORT (SQ) ---
EXAM DESCRIPTION: CTA CHEST COMPLETED DATE/TIME: 04/25/2018 10:58 am REASON FOR STUDY: r/o PE COMPARISON: CT of the chest with contrast 12/20/2015. TECHNIQUE: CT scan of the chest performed using helical scanning technique with dynamic intravenous contrast injection. Images reviewed with lung, soft tissue and bone windows. Reconstructed coronal and sagittal MPR images reviewed. Additional 3 dimensional post-processing performed to develop Maximal Intensity Projection images (MA P). All images stored on PACS. All CT scanners at this facility use dose modulation, iterative reconstruction, and/or weight based d osing when appropriate to reduce radiation dose to as low as reasonably achievable (ALARA). [facility]: Dose Right [facility]: CareDose [facility]: Dose Right [facility]: Teradose 4D [facility]: [employer] [place] CONTRAST TYPE AND DOSE: contrast/concentration: Isovue 350.00 mg/ml; Total Contrast Delivered: 86.0 ml; Total Saline Delivered: 80.0 ml Contrast bolus optimized for the pulmonary arteries. Not diagnostic for the aorta. RENAL FUNCTION: Creatinine: 1.1 RADIATION DOSE: CT Rad equipment meets quality standard of care and radiation dose reduction techniq ues were employed. CTDIvol: 27.8 - 46.3 mGy. DLP: 1287 mGy-cm. . LIMITATIONS: None. FINDINGS: LUNGS AND PLEURA: No masses, infiltrates, or pneumothorax. No pleural effusions or pleura l calcifications. AORTA AND GREAT VESSELS: No aneurysm. Contrast bolus not optimized for the aorta. HEART: No pericardial effusion. Atherosclerotic coronary artery calcification. PULMONARY ARTERIES: No emboli visualized in the main pulmonary arteries or the segmental branches. HILAR AND MEDIASTINAL STRUCTURES: Aberrant right subclavian artery . Small right peritracheal pretr acheal and sub- carinal nodes. HARDWARE: None in the chest. UPPER ABDOMEN: No abnormality of the liver, spleen, adrenals. THYROID AND OTHER SOFT TISSUES: No abnormality of the visualized thyroid gland. . BONES: No abnormality seen. 3D MIPS: Confirm above findings. OTHER: No other significant finding. IMPRESSION: NORMAL CTA OF THE CHEST. NO PULMONARY EMBOLI. COMMENT: Quality ID # [id number]: Final reports with documentation of one or more dose reduction techniques (e.g., Automated exposure control, adjustment of the mA and/or kV according to patient size, use of iterative reconstruction technique) TECHNICAL DOCUMENTATION: JOB ID: [id number] [place] [address] [facility] [employer]- All Rights Reserved Reading location - IP/workstation name: [email or web address]
[2018-04-25 17:08] LABS: ANION GAP 14 (5-19); BLOOD UREA NITROGEN 20 mg/dL (7-20); CARBON DIOXIDE 22 mmol/L (22-30); CHLORIDE 102 mmol/L (98-107); GLUCOSE 133 mg/dL (75-110); POTASSIUM 4.8 mmol/L (3.6-5.0); SODIUM 137.7 mmol/L (137-145)
[2018-04-25] MEDS: ATORVASTATIN CALCIUM 40 MG TABLET PO SCH (21:49)
[2018-04-25] MEDS: TEMAZEPAM 15 MG CAPSULE PO PRN (21:50)
[2018-04-26] MEDS: HEPARIN SOD (PORCINE) 5,000 UNIT/ML 1 ML SYRINGE SUBCUT SCH ×3 (05:33→21:21)
[2018-04-26] MEDS: LANSOPRAZOLE 30 MG TAB.RAP.DR PO SCH ×2 (05:33→16:42)
[2018-04-26 05:39] LABS: ABSOLUTE EOSINOPHILS # (AUTO) 0.1 10^3/uL (0.0-0.6); ABSOLUTE LYMPHOCYTES (AUTO) 2.2 10^3/uL (0.5-4.7); ABSOLUTE MONOCYTES (AUTO) 0.6 10^3/uL (0.1-1.4); ABSOLUTE NEUT (AUTO) 6.4 10^3/uL (1.7-8.2); BASOPHILS % (AUTO) 0.3 % (0-2); EOSINOPHILS % (AUTO) 0.7 % (0-6); LYMPHOCYTES % (AUTO) 24.1 % (13-45); MEAN CORPUSCULAR HEMOGLOBIN 33.2 pg (27.0-33.4); MEAN CORPUSCULAR HGB CONC 34.5 g/dL (32.0-36.0); MEAN CORPUSCULAR VOLUME 96 fl (80-97); MONOCYTES % (AUTO) 6.6 % (3-13); PLATELET COUNT 175 10^3/uL (150-450); RED BLOOD COUNT 5.42 10^6/uL (4.35-5.55); RED CELL DISTRIBUTION WIDTH 12.8 % (11.5-14.0); SEGMENTED NEUTROPHILS % (AUTO) 68.3 % (42-78); TOTAL CELLS COUNTED % (AUTO) 100 %; WHITE BLOOD COUNT 9.3 10^3/uL (4.0-10.5)
[2018-04-26] MEDS: IPRATROPIUM/ALBUTEROL 0.5-2.5 MG/3 ML AMPUL NEB PRN (08:28)
[2018-04-26] MEDS ORDERED: AMLODIPINE BESYLATE 10 MG TABLET PO ONE (09:00)
[2018-04-26] MEDS ORDERED: VALSARTAN 160 MG TABLET PO ONE ×2 (09:00→17:45)
[2018-04-26] MEDS ORDERED: PREDNISONE 20 MG TABLET PO ONE (09:00)
[2018-04-26] MEDS ORDERED: AZITHROMYCIN 250 MG TABLET PO ONE (09:30)
[2018-04-26] MEDS: CLOPIDOGREL BISULFATE 75 MG TABLET PO SCH (09:37)
[2018-04-26] MEDS: AMLODIPINE BESYLATE 10 MG TABLET PO SCH (10:05)
[2018-04-26] MEDS: PREDNISONE 20 MG TABLET PO SCH (10:05)
[2018-04-26] MEDS: VALSARTAN 160 MG TABLET PO SCH (10:05)
[2018-04-26] MEDS ORDERED: HYDROCHLOROTHIAZIDE 12.5 MG TABLET PO SCH (11:00)
[2018-04-26] MEDS: HYDROCHLOROTHIAZIDE 25 MG TABLET PO SCH (12:38)
--- NOTE | 2018-04-26 17:01 | PDOC PROGRESS REPORT ---
Subjective Subjective:: Acute events overnight patient is very pleasant and cooperative with physical examination. Standing his blood pressure is high and we are trying to adjust his medication altogether normal blood pressure. denies any fever, chills, chest pain, nausea, vomiting, abdominal pain, diarrhea, constipation or urinary symptoms. Reason For Visit: CHEST PAIN Physical Exam Vital Signs: Temp Pulse Resp BP Pulse Ox 98 F 88 18 160/100 H 96 04/26/18 12:00 04/26/18 14:00 04/26/18 12:00 04/26/18 12:00 04/26/18 12:00 Intake & Output 04/25/18 04/26/18 04/27/18 06:59 06:59 06:59 Intake Total 616 1447 Output Total 1000 Balance 616 447 Weight 110.6 kg 109.4 kg General appearance: PRESENT: no acute distress, obese, well-developed, well- nourished Head exam: PRESENT: atraumatic, normocephalic Eye exam: PRESENT: conjunctiva pink, EOMI, PERRLA. ABSENT: scleral icterus Ear exam: PRESENT: normal external ear exam Mouth exam: PRESENT: moist, tongue midline Neck exam: ABSENT: carotid bruit, JVD, lymphadenopathy, thyromegaly Respiratory exam: PRESENT: clear to auscultation sindy, prolonged expiratory phas , other - Left upper lobe mild expiratory wheezes.. ABSENT: rales, rhonchi, wheezes Cardiovascular exam: PRESENT: RRR. ABSENT: diastolic murmur, rubs, systolic murmur Pulses: PRESENT: normal dorsalis pedis pul Vascular exam: PRESENT: normal capillary refill GI/Abdominal exam: PRESENT: normal bowel sounds, soft. ABSENT: distended, guarding, mass, organolmegaly, rebound, tenderness Rectal exam: PRESENT: deferred Extremities exam: PRESENT: full ROM. ABSENT: calf tenderness, clubbing, pedal edema Neurological exam: PRESENT: alert, awake, oriented to person, oriented to place , oriented to time, oriented to situation, CN II-XII grossly intact. ABSENT: motor sensory deficit Psychiatric exam: PRESENT: appropriate affect, normal mood. ABSENT: homicidal ideation, suicidal ideation Skin exam: PRESENT: dry, intact, warm. ABSENT: cyanosis, rash Results Laboratory Results: 04/26/18 04:20 04/25/18 15:59 04/25/18 04/26/18 15:59 04:20 WBC 9.3 RBC 5.42 Hgb 18.0 H Hct 52.0 H MCV 96 MCH 33.2 MCHC 34.5 RDW 12.8 Plt Count 175 Seg Neutrophils % 68.3 Lymphocytes % 24.1 Monocytes % 6.6 Eosinophils % 0.7 Basophils % 0.3 Absolute Neutrophils 6.4 Absolute Lymphocytes 2.2 Absolute Monocytes 0.6 Absolute Eosinophils 0.1 Absolute Basophils 0.0 Sodium 137.7 Potassium 4.8 Chloride 102 Carbon Dioxide 22 Anion Gap 14 BUN 20 Creatinine 1.38 H Est GFR ( Amer) > 60 Est GFR (Non-Af Amer) 53 L Glucose 133 H Calcium 10.0 04/24/18 04/24/18 04/24/18 04:20 06:51 13:04 Troponin I 0.025 0.028 NT-Pro-B Natriuret Pep 80 04/24/18 20:10 Troponin I 0.017 NT-Pro-B Natriuret Pep Impressions: Abdomen/Pelvis CT 04/23/18 00:00 IMPRESSION: Fatty metamorphosis of the liver. Large bowel diverticulosis, without acute diverticulitis. Prior right nephrectomy. Location of Interpretation: [facility] Chest X-Ray 04/23/18 00:00 IMPRESSION: NO ACUTE RADIOGRAPHIC FINDING IN THE CHEST. Abdomen Ultrasound 04/23/18 11:07 IMPRESSION: Fatty infiltration of the liver. Borderline common bile duct. Correlate for biliary obstruction. Chest/Abdomen CTA 04/25/18 00:00 IMPRESSION: NORMAL CTA OF THE CHEST. NO PULMONARY EMBOLI. Assessment & Plan - Diagnosis (1) Hypertension Is this a current diagnosis for this admission?: Yes Plan: Uncontrolled hypertension. Continue amlodipine 10 mg, valsartan was increased to 164 mg q12hrs, chlorothiazide was increased to 25 mg daily. Monitor blood pressure and adjust medications as appropriate (2) Chest pain Qualifiers: Chest pain type: unspecified Qualified Code(s): R07.9 - Chest pain, unspecified Is this a current diagnosis for this admission?: Yes Plan: Resolved. No acute EKG changes, troponin is mildly elevated at 0.046. Start on Plavix, atorvastatin, and ARB. Negative cardiac workup. Please refer to cardiology note. (3) Erythrocytosis Is this a current diagnosis for this admission?: Yes Plan: Improving. Likely due to hypoxia caused by chronic smoking and COPD. (4) Tobacco dependence Is this a current diagnosis for this admission?: Yes Plan: Heavy smoker, advised on quitting. placed on nicotine patch (5) Hyperlipidemia Is this a current diagnosis for this admission?: Yes Plan: Start on diet modification. Continue statins (6) Obstructive chronic bronchitis with exacerbation Is this a current diagnosis for this admission?: Yes Plan: Nebs, prednisone day 4/5. Patient is a heavy smoker and was advised to quit smoking. (7) Hematuria Is this a current diagnosis for this admission?: Yes Plan: Patient denies any hematuria. Urology was consulted and the plan was for patient to follow-up with his PCP and do another urinalysis and possible cystoscopy as outpatient. (8) Pneumonia Is this a current diagnosis for this admission?: Yes Plan: DC IV levofloxacin, azithromycin 500 mg 1, azithromycin 250 mg daily day 2/4
--- NOTE | 2018-04-26 17:06 | PDOC PROGRESS REPORT ---
Subjective Progress Note for:: 04/25/18 Subjective:: Patient has been hypertensive overnight. No acute events overnight. However patient became short of breath in the morning upon examination of the chest there was loss of crackles and wheezing in the left upper lung Patient endorses shortness of breath but denies any fever, chills, chest pain, nausea, vomiting, abdominal pain, diarrhea, constipation or urinary symptoms. Reason For Visit: CHEST PAIN Physical Exam Vital Signs: Temp Pulse Resp BP Pulse Ox 98.1 F 69 16 134/80 H 98 04/25/18 12:00 04/25/18 12:08 04/25/18 12:08 04/25/18 12:00 04/25/18 12:08 Intake & Output 04/24/18 04/25/18 04/26/18 06:59 06:59 06:59 Intake Total 645 616 Balance 645 616 Weight 108.6 kg 110.6 kg General appearance: PRESENT: no acute distress, well-developed, well-nourished Head exam: PRESENT: atraumatic, normocephalic Eye exam: PRESENT: conjunctiva pink, EOMI, PERRLA. ABSENT: scleral icterus Ear exam: PRESENT: normal external ear exam Mouth exam: PRESENT: moist, tongue midline Neck exam: ABSENT: carotid bruit, JVD, lymphadenopathy, thyromegaly Respiratory exam: PRESENT: crackles, decreased breath sounds, prolonged expiratory phas. ABSENT: rales, rhonchi, wheezes Cardiovascular exam: PRESENT: RRR. ABSENT: diastolic murmur, rubs, systolic murmur Pulses: PRESENT: normal dorsalis pedis pul Vascular exam: PRESENT: normal capillary refill GI/Abdominal exam: PRESENT: normal bowel sounds, soft. ABSENT: distended, guarding, mass, organolmegaly, rebound, tenderness Rectal exam: PRESENT: deferred Extremities exam: PRESENT: full ROM. ABSENT: calf tenderness, clubbing, pedal edema Neurological exam: PRESENT: alert, awake, oriented to person, oriented to place , oriented to time, oriented to situation, CN II-XII grossly intact. ABSENT: motor sensory deficit Psychiatric exam: PRESENT: appropriate affect, normal mood. ABSENT: homicidal ideation, suicidal ideation Skin exam: PRESENT: dry, intact, warm. ABSENT: cyanosis, rash Results Laboratory Results: 04/24/18 04:20 04/25/18 07:16 04/25/18 07:16 Sodium 137.6 Potassium 4.1 Chloride 101 Carbon Dioxide 26 Anion Gap 11 BUN 17 Creatinine 1.12 Est GFR ( Amer) > 60 Est GFR (Non-Af Amer) > 60 Glucose 90 Calcium 9.6 Total Bilirubin 0.6 AST 31 ALT 45 Alkaline Phosphatase 51 Total Protein 7.5 Albumin 4.3 04/24/18 04/24/18 04/24/18 04:20 06:51 13:04 Troponin I 0.025 0.028 NT-Pro-B Natriuret Pep 80 04/24/18 20:10 Troponin I 0.017 NT-Pro-B Natriuret Pep Impressions: Abdomen/Pelvis CT 04/23/18 00:00 IMPRESSION: Fatty metamorphosis of the liver. Large bowel diverticulosis, without acute diverticulitis. Prior right nephrectomy. Location of Interpretation: [facility] Chest X-Ray 04/23/18 00:00 IMPRESSION: NO ACUTE RADIOGRAPHIC FINDING IN THE CHEST. Abdomen Ultrasound 04/23/18 11:07 IMPRESSION: Fatty infiltration of the liver. Borderline common bile duct. Correlate for biliary obstruction. Chest/Abdomen CTA 04/25/18 00:00 IMPRESSION: NORMAL CTA OF THE CHEST. NO PULMONARY EMBOLI. Assessment & Plan - Diagnosis (1) Hypertension Is this a current diagnosis for this admission?: Yes Plan: Uncontrolled hypertension. Continue amlodipine 10 mg, valsartan 164 mg q24hrs, Hydorchlorothiazide was increased to 12.5 mg daily. Monitor blood pressure and adjust medications as appropriate (2) Chest pain Qualifiers: Chest pain type: unspecified Qualified Code(s): R07.9 - Chest pain, unspecified Is this a current diagnosis for this admission?: Yes Plan: Resolved. No acute EKG changes, troponin is mildly elevated at 0.046. Start on Plavix, atorvastatin, and ARB. Negative cardiac workup. Please refer to cardiology note. (3) Erythrocytosis Is this a current diagnosis for this admission?: Yes Plan: Improving. Likely due to chronic smoking and COPD. (4) Tobacco dependence Is this a current diagnosis for this admission?: Yes Plan: Advised on quitting. placed on nicotine patch (5) Hyperlipidemia Is this a current diagnosis for this admission?: Yes Plan: Start on diet modification. Continue statins (6) Obstructive chronic bronchitis with exacerbation Is this a current diagnosis for this admission?: Yes Plan: Continue nebs, prednisone day 3/5. Patient is a heavy smoker and was advised to quit smoking. (7) Hematuria Is this a current diagnosis for this admission?: Yes Plan: Patient denies any hematuria. Urology was consulted and the plan was for patient to follow-up with his PCP and do another urinalysis and possible cystoscopy as outpatient. (8) Pneumonia Is this a current diagnosis for this admission?: Yes Plan: IV levofloxacin switch to p.o. azithromycin 500 g 1, azithromycin 250 mg daily 08/21
[2018-04-26] MEDS ORDERED: AZITHROMYCIN 250 MG TABLET PO SCH (18:00)
--- NOTE | 2018-04-26 20:15 | PDOC PROGRESS REPORT ---
Subjective Progress Note for:: 04/25/18 Subjective:: Patient noted to be doing better without any recurrent chest pain. Patient did undergo a nuclear stress test without any complications. Nuclear stress test results were fairly unremarkable. 2D echo is pending. Patient concerned about elevated blood pressure but he is denying any chest pain. Patient may still be smoking. Patient has been told not to go off the floor. Reason For Visit: CHEST PAIN Physical Exam Vital Signs: Temp Pulse Resp BP Pulse Ox 98.1 F 76 20 165/88 H 97 04/26/18 16:50 04/26/18 19:00 04/26/18 16:50 04/26/18 16:50 04/26/18 16:50 Intake & Output 04/25/18 04/26/18 04/27/18 06:59 06:59 06:59 Intake Total 616 1447 813 Output Total 1000 1200 Balance 616 653 -501 Weight 110.6 kg 109.4 kg Exam: GENERAL: well-nourished and in no acute distress. Alert and oriented x3 HEAD: Atraumatic, normocephalic. EYES: Pupils equal round and reactive to light, extraocular movements intact, sclera anicteric, conjunctiva are normal. ENT: TMs normal, nares patent, oropharynx clear without exudates. Moist mucous membranes. No oral ulcerations or bleeding gums noted NECK: supple without lymphadenopathy. Trachea is central. No cervical or axillary lymphadenopathy noted. Carotids are 2+, JVD WNL LUNGS: Respiration seems nonlabored, no significant accessory muscle action noted. Breath sounds clear to auscultation bilaterally and equal noted. No wheezes rales or rhonchi noted. No significant dullness noted on percussion. CHEST: Palpation of the chest wall shows no significant chest wall tenderness. 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 ABDOMEN: Soft, no significant tenderness appreciated, normoactive bowel sounds. No guarding, no rebound. No rigidity noted . No masses appreciated. EXTREMITIES: Pedal pulses are 1-2+, no calf tenderness noted. No clubbing or cyanosis. negative pedal edema noted NEUROLOGICAL: Focused neurological exam showed no significant neurologic deficit. Normal speech, no focal weakness appreciated. PSYCH: Normal mood, normal affect. Judgment and insight within normal limits. SKIN: No significant ecchymosis, skin is noted to be warm. MUSCULOSKELETAL EXAM: No significant acute joint swelling noted. Results Laboratory Results: 04/26/18 04:20 04/25/18 15:59 04/26/18 04:20 WBC 9.3 RBC 5.42 Hgb 18.0 H Hct 52.0 H MCV 96 MCH 33.2 MCHC 34.5 RDW 12.8 Plt Count 175 Seg Neutrophils % 68.3 Lymphocytes % 24.1 Monocytes % 6.6 Eosinophils % 0.7 Basophils % 0.3 Absolute Neutrophils 6.4 Absolute Lymphocytes 2.2 Absolute Monocytes 0.6 Absolute Eosinophils 0.1 Absolute Basophils 0.0 04/24/18 04/24/18 04/24/18 04:20 06:51 13:04 Troponin I 0.025 0.028 NT-Pro-B Natriuret Pep 80 04/24/18 20:10 Troponin I 0.017 NT-Pro-B Natriuret Pep Impressions: Abdomen/Pelvis CT 04/23/18 00:00 IMPRESSION: Fatty metamorphosis of the liver. Large bowel diverticulosis, without acute diverticulitis. Prior right nephrectomy. Location of Interpretation: [facility] Chest X-Ray 04/23/18 00:00 IMPRESSION: NO ACUTE RADIOGRAPHIC FINDING IN THE CHEST. Abdomen Ultrasound 04/23/18 11:07 IMPRESSION: Fatty infiltration of the liver. Borderline common bile duct. Correlate for biliary obstruction. Chest/Abdomen CTA 04/25/18 00:00 IMPRESSION: NORMAL CTA OF THE CHEST. NO PULMONARY EMBOLI. Assessment & Plan - Diagnosis (1) Chest pain Qualifiers: Chest pain type: unspecified Qualified Code(s): R07.9 - Chest pain, unspecified Is this a current diagnosis for this admission?: Yes (2) Hematuria Qualifiers: Hematuria type: unspecified type Qualified Code(s): R31.9 - Hematuria, unspecified Is this a current diagnosis for this admission?: Yes (3) Hypertension Qualifiers: Hypertension type: essential hypertension Qualified Code(s): I10 - Essential (primary) hypertension Is this a current diagnosis for this admission?: Yes (4) Tobacco dependence Is this a current diagnosis for this admission?: Yes (5) Erythrocytosis Is this a current diagnosis for this admission?: Yes (6) Hyperlipidemia Qualifiers: Hyperlipidemia type: unspecified Qualified Code(s): E78.5 - Hyperlipidemia , unspecified Is this a current diagnosis for this admission?: Yes (7) Solitary kidney, acquired Is this a current diagnosis for this admission?: Yes - Notes Notes: Chest pain: Resolved. Hematuria: Patient has seen neurologist, patient may need to see a arts manager. Hypertension: Blood pressure has been somewhat difficult to control. May consider 24 hour catecholamine, cortisol, rennin aldosterone ratio. Tobacco dependence: Patient has been advised to quit smoking. Erythrocytosis: Exact etiology not clear may consider hematology oncology consultation. This could be related to tobacco dependence and COPD. Patient may have underlying sleep apnea syndrome. Hyperlipidemia: Continue with statin therapy. Solitary kidney: Patient has a surgically removed kidney. - Time Time with patient: Greater than 35 minutes - More than 50% of the time spent coordinating care, discussing management plans with involved caregivers. Management plans discussed with involved personnels. Medical decision making was of moderate to high complexity, patient's has multiple comorbidities. Medications reviewed and adjusted accordingly: Yes
--- NOTE | 2018-04-26 20:19 | PDOC PROGRESS REPORT ---
Subjective Progress Note for:: 04/26/18 Subjective:: Patient noted to be doing better without any recurrent chest pain. Patient did undergo a nuclear stress test without any complications. Nuclear stress test results were fairly unremarkable. 2D echo is pending. Patient concerned about elevated blood pressure but he is denying any chest pain. Patient noted to be ambulating on the floor. Patient does complain of mild dyspnea on exertion. Reason For Visit: CHEST PAIN Physical Exam Vital Signs: Temp Pulse Resp BP Pulse Ox 98.1 F 76 20 165/88 H 97 04/26/18 16:50 04/26/18 19:00 04/26/18 16:50 04/26/18 16:50 04/26/18 16:50 Intake & Output 04/25/18 04/26/18 04/27/18 06:59 06:59 06:59 Intake Total 616 1447 813 Output Total 1000 1200 Balance 616 191 -959 Weight 110.6 kg 109.4 kg Exam: GENERAL: well-nourished and in no acute distress. Alert and oriented x3 HEAD: Atraumatic, normocephalic. EYES: Pupils equal round and reactive to light, extraocular movements intact, sclera anicteric, conjunctiva are normal. ENT: TMs normal, nares patent, oropharynx clear without exudates. Moist mucous membranes. No oral ulcerations or bleeding gums noted NECK: supple without lymphadenopathy. Trachea is central. No cervical or axillary lymphadenopathy noted. Carotids are 2+, JVD WNL LUNGS: Respiration seems nonlabored, no significant accessory muscle action noted. Breath sounds clear to auscultation bilaterally and equal noted. No wheezes rales or rhonchi noted. No significant dullness noted on percussion. CHEST: Palpation of the chest wall shows no significant chest wall tenderness. 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 ABDOMEN: Soft, no significant tenderness appreciated, normoactive bowel sounds. No guarding, no rebound. No rigidity noted . No masses appreciated. EXTREMITIES: Pedal pulses are 1-2+, no calf tenderness noted. No clubbing or cyanosis. negative pedal edema noted NEUROLOGICAL: Focused neurological exam showed no significant neurologic deficit. Normal speech, no focal weakness appreciated. PSYCH: Normal mood, normal affect. Judgment and insight within normal limits. SKIN: No significant ecchymosis, skin is noted to be warm. MUSCULOSKELETAL EXAM: No significant acute joint swelling noted. Results Laboratory Results: 04/26/18 04:20 04/25/18 15:59 04/26/18 04:20 WBC 9.3 RBC 5.42 Hgb 18.0 H Hct 52.0 H MCV 96 MCH 33.2 MCHC 34.5 RDW 12.8 Plt Count 175 Seg Neutrophils % 68.3 Lymphocytes % 24.1 Monocytes % 6.6 Eosinophils % 0.7 Basophils % 0.3 Absolute Neutrophils 6.4 Absolute Lymphocytes 2.2 Absolute Monocytes 0.6 Absolute Eosinophils 0.1 Absolute Basophils 0.0 04/24/18 04/24/18 04/24/18 04:20 06:51 13:04 Troponin I 0.025 0.028 NT-Pro-B Natriuret Pep 80 04/24/18 20:10 Troponin I 0.017 NT-Pro-B Natriuret Pep Impressions: Abdomen/Pelvis CT 04/23/18 00:00 IMPRESSION: Fatty metamorphosis of the liver. Large bowel diverticulosis, without acute diverticulitis. Prior right nephrectomy. Location of Interpretation: [facility] Chest X-Ray 04/23/18 00:00 IMPRESSION: NO ACUTE RADIOGRAPHIC FINDING IN THE CHEST. Abdomen Ultrasound 04/23/18 11:07 IMPRESSION: Fatty infiltration of the liver. Borderline common bile duct. Correlate for biliary obstruction. Chest/Abdomen CTA 04/25/18 00:00 IMPRESSION: NORMAL CTA OF THE CHEST. NO PULMONARY EMBOLI. Assessment & Plan - Diagnosis (1) Chest pain Qualifiers: Chest pain type: unspecified Qualified Code(s): R07.9 - Chest pain, unspecified Is this a current diagnosis for this admission?: Yes (2) Hematuria Qualifiers: Hematuria type: unspecified type Qualified Code(s): R31.9 - Hematuria, unspecified Is this a current diagnosis for this admission?: Yes (3) Hypertension Qualifiers: Hypertension type: essential hypertension Qualified Code(s): I10 - Essential (primary) hypertension Is this a current diagnosis for this admission?: Yes (4) Tobacco dependence Is this a current diagnosis for this admission?: Yes (5) Erythrocytosis Is this a current diagnosis for this admission?: Yes (6) Hyperlipidemia Qualifiers: Hyperlipidemia type: unspecified Qualified Code(s): E78.5 - Hyperlipidemia , unspecified Is this a current diagnosis for this admission?: Yes (7) Solitary kidney, acquired Is this a current diagnosis for this admission?: Yes - Notes Notes: Chest pain: Resolved. Nuclear stress test results reviewed. 2D echocardiogram is pending. Hematuria: Patient has seen neurologist, patient may need to see a automatic buffing wheel former. Hypertension: Blood pressure has been somewhat difficult to control. Agree with amlodipine therapy, valsartan therapy, HCTZ therapy. May consider carvedilol and beta-chioma therapy but patient seems to have significant COPD. May consider 24 hour catecholamine, cortisol, rennin aldosterone ratio. Tobacco dependence: Patient has been advised to quit smoking. Erythrocytosis: Exact etiology not clear may consider hematology oncology consultation. This could be related to tobacco dependence and COPD. Patient may have underlying sleep apnea syndrome. Hyperlipidemia: Continue with statin therapy. Solitary kidney: Patient has a surgically removed kidney. - Time Time with patient: Greater than 35 minutes - More than 50% of the time spent coordinating care, discussing management plans with involved caregivers. Management plans discussed with involved personnels. Medical decision making was of moderate to high complexity, patient's has multiple comorbidities. Medications reviewed and adjusted accordingly: Yes
[2018-04-26] MEDS: TEMAZEPAM 15 MG CAPSULE PO PRN (21:22)
[2018-04-26] MEDS: ATORVASTATIN CALCIUM 40 MG TABLET PO SCH (21:22)
[2018-04-27] MEDS: HEPARIN SOD (PORCINE) 5,000 UNIT/ML 1 ML SYRINGE SUBCUT SCH (05:08)
[2018-04-27] MEDS: LANSOPRAZOLE 30 MG TAB.RAP.DR PO SCH (05:09)
[2018-04-27] MEDS: AMLODIPINE BESYLATE 10 MG TABLET PO SCH (09:13)
[2018-04-27] MEDS: HYDROCHLOROTHIAZIDE 25 MG TABLET PO SCH (09:13)
[2018-04-27] MEDS: CLOPIDOGREL BISULFATE 75 MG TABLET PO SCH (09:13)
[2018-04-27] MEDS: PREDNISONE 20 MG TABLET PO SCH (09:13)
[2018-04-27] MEDS ORDERED: VALSARTAN 160 MG TABLET PO SCH (10:00)
[2018-04-27] MEDS: CLONIDINE HCL 0.1 MG TABLET PO SCH ×2 (11:22→11:45)
[2018-04-27 11:47] VITALS: BP 135/80
--- NOTE | 2018-04-27 17:52 | PDOC DISCHARGE SUMMARY ---
General - Admit/Disc Date/PCP Admission Date/Primary Care Provider: 04/23/18 13:03 DALJIT GOMEZ PA-C Discharge Date: 04/27/18 - Discharge Diagnosis (1) Hypertension Is this a current diagnosis for this admission?: Yes Summary: Very difficult to control hypertension. We will start multiple medications. Amlodipine 10 mg, losartan 160 milligrams p.o. twice daily, hydrochlorothiazide 25 mg p.o. daily. Patient needs to have proper follow-up with PCP for his blood pressure to be monitored and his medications to be adjusted. Patient has a blood pressure monitor at home. He was asked to check his blood pressure every morning, and write it down for a week and take it to his PCP. (2) Chest pain Is this a current diagnosis for this admission?: Yes Summary: Resolved. No acute EKG changes, troponin is mildly elevated at 0.046. Start on Plavix, atorvastatin, and ARB. Negative cardiac workup. Please refer to cardiology note. (3) Erythrocytosis Is this a current diagnosis for this admission?: Yes Summary: Likely due to hypoxia caused by chronic smoking and COPD or obstructive sleep apnea. Patient was asked to follow-up with expeditionary fighting vehicle crewman oncologist to rule out any underlying malignancy. He also asked to follow-up with his PCP to be referred for sleep study evaluated for obstructive sleep apnea and possibly a CPAP machine. He was advised to quit smoking. (4) Tobacco dependence Is this a current diagnosis for this admission?: Yes Summary: Advised on quitting smoking. (5) Hyperlipidemia Is this a current diagnosis for this admission?: Yes Summary: Continue statins on lifestyle modification. (6) Hematuria Is this a current diagnosis for this admission?: Yes Summary: Resolved. Neurology was consulted who recommended that patient is to follow-up with his PCP in 1 month to get a urinalysis and be evaluated for resolution of his hematuria. (7) Pneumonia Is this a current diagnosis for this admission?: Yes (8) COPD (chronic obstructive pulmonary disease) Is this a current diagnosis for this admission?: Yes Summary: Patient was placed on daily nebs and oral steroids. Patient was asked to follow with log marker for evaluation of his COPD most likely caused by his chronic kidney smoking. - Additional Information Resuscitation Status: Full Code Discharge Diet: As Tolerated Discharge Activity: Activity As Tolerated, Balance Activity w/Rest Prescriptions: Amlodipine Besylate [Norvasc 10 mg Tablet] 10 mg PO DAILY 30 Days #30 tablet Azithromycin [Zithromax 250 mg Tablet] 250 mg PO QPM 2 Days #2 tablet Clopidogrel Bisulfate [Plavix 75 mg Tablet] 75 mg PO DAILY 30 Days #30 tablet Hydrochlorothiazide [Hydrodiuril 25 mg Tablet] 25 mg PO DAILY 30 Days #30 tablet Prednisone [Deltasone 20 mg Tablet] 40 mg PO DAILY 2 Days #4 tablet Valsartan [Diovan 160 mg Tablet] 160 mg PO Q12 30 Days #60 tablet Home Medications: Amlodipine Besylate [Norvasc 10 mg Tablet] 10 mg PO DAILY 30 Days #30 tablet 06/04 Azithromycin [Zithromax 250 mg Tablet] 250 mg PO QPM 2 Days #2 tablet 04/27/18 Clopidogrel Bisulfate [Plavix 75 mg Tablet] 75 mg PO DAILY 30 Days #30 tablet Hydrochlorothiazide [Hydrodiuril 25 mg Tablet] 25 mg PO DAILY 30 Days #30 tablet 04/27/18 Prednisone [Deltasone 20 mg Tablet] 40 mg PO DAILY 2 Days #4 tablet 04/27/18 Valsartan [Diovan 160 mg Tablet] 160 mg PO Q12 30 Days #60 tablet 04/27/18 History of Present Illness History of Present Illness: VENKAT BENTLEY is a 58 year old male past medical history of hypertension, COPD ( current heavy smoker , 40 years), hyperlipidemia, right nephrectomy in 1977 due to a sport accident. Patient is complaining of chest pain over the last several days. He has been having several episodes of chest pain since last . He also states that he has been having chronic chest pain but this is different. Today in the morning when he was resting and he got up to get his inhaler he started feeling short of breath with tightness in his chest and pressure-like chest pain radiating to both arms, chest pain lasted about 5 minutes, and resolved when patient rested. He states the previous episodes have been similar. Also mentioned that his thumbs gets numb and also recently has noticed that he is been having lower extremity tingling and swelling. 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 Brother had several heart attacks starting in his 40s and mother has a pacemaker but he does not remember when she had heart attack. He had a right nephrectomy in 1977 due to a sport accident. He states sometimes he notices dark urine but denies any hematuria He denies any fever, nausea, vomiting, diarrhea, abdominal pain, constipation, urinary symptoms. Physical Exam Vital Signs: Temp Pulse Resp BP Pulse Ox 98.7 F 72 18 135/80 H 99 04/27/18 11:45 04/27/18 11:45 04/27/18 11:45 04/27/18 11:45 04/27/18 11:45 Intake & Output 04/26/18 04/27/18 04/28/18 06:59 06:59 06:59 Intake Total 1447 813 Output Total 1000 1200 Balance 447 -387 Weight 109.4 kg 109.1 kg General appearance: PRESENT: no acute distress, well-developed, well-nourished Head exam: PRESENT: atraumatic, normocephalic Eye exam: PRESENT: conjunctiva pink, EOMI, PERRLA. ABSENT: scleral icterus Ear exam: PRESENT: normal external ear exam Mouth exam: PRESENT: moist, tongue midline Neck exam: ABSENT: carotid bruit, JVD, lymphadenopathy, thyromegaly Respiratory exam: PRESENT: clear to auscultation sindy. ABSENT: rales, rhonchi, wheezes Cardiovascular exam: PRESENT: RRR. ABSENT: diastolic murmur, rubs, systolic murmur Pulses: PRESENT: normal dorsalis pedis pul Vascular exam: PRESENT: normal capillary refill GI/Abdominal exam: PRESENT: normal bowel sounds, soft. ABSENT: distended, guarding, mass, organolmegaly, rebound, tenderness Rectal exam: PRESENT: deferred Extremities exam: PRESENT: full ROM. ABSENT: calf tenderness, clubbing, pedal edema Neurological exam: PRESENT: alert, awake, oriented to person, oriented to place , oriented to time, oriented to situation, CN II-XII grossly intact. ABSENT: motor sensory deficit Psychiatric exam: PRESENT: appropriate affect, normal mood. ABSENT: homicidal ideation, suicidal ideation Skin exam: PRESENT: dry, intact, warm. ABSENT: cyanosis, rash Results Laboratory Results: 04/26/18 04:20 04/25/18 15:59 04/24/18 04/24/18 04/24/18 04:20 06:51 13:04 Troponin I 0.025 0.028 NT-Pro-B Natriuret Pep 80 04/24/18 20:10 Troponin I 0.017 NT-Pro-B Natriuret Pep Impressions: Abdomen/Pelvis CT 04/23/18 00:00 IMPRESSION: Fatty metamorphosis of the liver. Large bowel diverticulosis, without acute diverticulitis. Prior right nephrectomy. Location of Interpretation: [facility] Chest X-Ray 04/23/18 00:00 IMPRESSION: NO ACUTE RADIOGRAPHIC FINDING IN THE CHEST. Abdomen Ultrasound 04/23/18 11:07 IMPRESSION: Fatty infiltration of the liver. Borderline common bile duct. Correlate for biliary obstruction. Chest/Abdomen CTA 04/25/18 00:00 IMPRESSION: NORMAL CTA OF THE CHEST. NO PULMONARY EMBOLI. Qualifiers - * PATIENT BEING DISCHARGED WITH ANY OF THE FOLLOWING DIAGNOSIS: No VTE patient discharged on overlapping Therapy?: Yes
--- NOTE | 2018-04-27 21:44 | PDOC PROGRESS REPORT ---
Subjective Progress Note for:: 04/27/18 Subjective:: Seen on AM rounds. Patient noted to be doing better without any recurrent chest pain. Patient did undergo a nuclear stress test without any complications. Nuclear stress test results were fairly unremarkable. 2D echo is pending. Patient concerned about elevated blood pressure but he is denying any chest pain. Patient noted to be ambulating on the floor. Patient does complain of mild dyspnea on exertion. Reason For Visit: CHEST PAIN Physical Exam Vital Signs: Temp Pulse Resp BP Pulse Ox 98.7 F 72 18 135/80 H 99 04/27/18 11:45 04/27/18 11:45 04/27/18 11:45 04/27/18 11:45 04/27/18 11:45 Intake & Output 04/26/18 04/27/18 04/28/18 06:59 06:59 06:59 Intake Total 1447 813 Output Total 1000 1200 Balance 447 -387 Weight 109.4 kg 109.1 kg Exam: GENERAL: well-nourished and in no acute distress. Alert and oriented x3 HEAD: Atraumatic, normocephalic. EYES: Pupils equal round and reactive to light, extraocular movements intact, sclera anicteric, conjunctiva are normal. ENT: TMs normal, nares patent, oropharynx clear without exudates. Moist mucous membranes. No oral ulcerations or bleeding gums noted NECK: supple without lymphadenopathy. Trachea is central. No cervical or axillary lymphadenopathy noted. Carotids are 2+, JVD WNL LUNGS: Respiration seems nonlabored, no significant accessory muscle action noted. Breath sounds clear to auscultation bilaterally and equal noted. No wheezes rales or rhonchi noted. No significant dullness noted on percussion. CHEST: Palpation of the chest wall shows no significant chest wall tenderness. 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 ABDOMEN: Soft, no significant tenderness appreciated, normoactive bowel sounds. No guarding, no rebound. No rigidity noted . No masses appreciated. EXTREMITIES: Pedal pulses are 1-2+, no calf tenderness noted. No clubbing or cyanosis. negative pedal edema noted NEUROLOGICAL: Focused neurological exam showed no significant neurologic deficit. Normal speech, no focal weakness appreciated. PSYCH: Normal mood, normal affect. Judgment and insight within normal limits. SKIN: No significant ecchymosis, skin is noted to be warm. MUSCULOSKELETAL EXAM: No significant acute joint swelling noted. Results Laboratory Results: 04/26/18 04:20 04/25/18 15:59 04/24/18 04/24/18 04/24/18 04:20 06:51 13:04 Troponin I 0.025 0.028 NT-Pro-B Natriuret Pep 80 04/24/18 20:10 Troponin I 0.017 NT-Pro-B Natriuret Pep Impressions: Abdomen/Pelvis CT 04/23/18 00:00 IMPRESSION: Fatty metamorphosis of the liver. Large bowel diverticulosis, without acute diverticulitis. Prior right nephrectomy. Location of Interpretation: [facility] Chest X-Ray 04/23/18 00:00 IMPRESSION: NO ACUTE RADIOGRAPHIC FINDING IN THE CHEST. Abdomen Ultrasound 04/23/18 11:07 IMPRESSION: Fatty infiltration of the liver. Borderline common bile duct. Correlate for biliary obstruction. Chest/Abdomen CTA 04/25/18 00:00 IMPRESSION: NORMAL CTA OF THE CHEST. NO PULMONARY EMBOLI. Assessment & Plan - Diagnosis (1) Chest pain Qualifiers: Chest pain type: unspecified Qualified Code(s): R07.9 - Chest pain, unspecified Is this a current diagnosis for this admission?: Yes (2) Hematuria Qualifiers: Hematuria type: unspecified type Qualified Code(s): R31.9 - Hematuria, unspecified Is this a current diagnosis for this admission?: Yes (3) Hypertension Qualifiers: Hypertension type: essential hypertension Qualified Code(s): I10 - Essential (primary) hypertension Is this a current diagnosis for this admission?: Yes (4) Tobacco dependence Is this a current diagnosis for this admission?: Yes (5) Erythrocytosis Is this a current diagnosis for this admission?: Yes (6) Hyperlipidemia Qualifiers: Hyperlipidemia type: unspecified Qualified Code(s): E78.5 - Hyperlipidemia , unspecified Is this a current diagnosis for this admission?: Yes (7) Solitary kidney, acquired Is this a current diagnosis for this admission?: Yes - Notes Notes: Started Clonidine. Hypertension: Blood pressure goal in this patient is 135/85 or less. This was discussed with the patient. Currently blood pressure under reasonable control. Better medication for this patient are JESSICA inhibitor/ARB/beta chioma etc. discussed side effects of uncontrolled hypertension and also severe hypotension. Blood pressure has been somewhat difficult to control. But today it is under satisfactory control. Patient started on clonidine. Patient can follow-up with me for better blood pressure control. Patient will also benefit from evaluation for underlying sleep apnea. Renal insufficiency: Patient noted to have mild renal insufficiency. He is noted to have just one kidney other kidney being surgically absent. Discussed avoidance of nonsteroidal anti-inflammatory and other potential nephrotoxic agents. Hyperlipidemia: LDL goal is less than 70. Recommend statin therapy at least intermediate or high dose, of high potency status. Periodic lipid panel and liver panel is indicated. Patient to report any significant muscle discomfort or other side effects. Tobacco abuse: Patient advised in tobacco cessation. COPD: Patient noted to have significant COPD. Patient advised against tobacco smoking. Continue current steroids and inhaler therapy as prescribed by the other physician. Erythrocytosis: Possibly related to COPD but patient may have nocturnal hypoxemia. Patient does have history of snoring. Have discussed further evaluation with a sleep study as an outpatient. - Time Time with patient: Greater than 35 minutes - More than 50% of the time spent coordinating care, discussing management plans with involved caregivers. Management plans discussed with involved personnels. Medical decision making was of moderate to high complexity, patient's has multiple comorbidities. Medications reviewed and adjusted accordingly: Yes
--- NOTE | 2018-04-27 22:58 | EKG REPORT ---
SEVERITY:- NORMAL ECG - SINUS RHYTHM : Confirmed by: Neville Bullard 27-Apr-2018 22:58:09
--- NOTE | 2018-04-28 17:36 | PDOC CONSULTATION ---
Consultation Consult Date: 04/23/18 Attending physician:: KYLAH EASTON Consult reason:: Shortness of breath and chest pain History of Present Illness Admission Date/PCP: 04/23/18 13:03 DALJIT GOMEZ PA-C Patient complains of: Chest pain and shortness of breath History of Present Illness: VENKAT BENTLEY is a 58 year old male past medical history of hypertension, COPD ( current heavy smoker , 40 years), hyperlipidemia, right nephrectomy in 1977 due to a sport accident. Patient is complaining of chest pain over the last several days. He has been having several episodes of chest pain since last . He also states that he has been having chronic chest pain but this is different. Today in the morning when he was resting and he got up to get his inhaler he started feeling short of breath with tightness in his chest and pressure-like chest pain radiating to both arms, chest pain lasted about 5 minutes, and resolved when patient rested. He states the previous episodes have been similar. Also mentioned that his thumbs gets numb and also recently has noticed that he is been having lower extremity tingling and swelling. 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 Brother had several heart attacks starting in his 40s and mother has a pacemaker but he does not remember when she had heart attack. He had a right nephrectomy in 1977 due to a sport accident. He states sometimes he notices dark urine but denies any hematuria He denies any fever, nausea, vomiting, diarrhea, abdominal pain, constipation, urinary symptoms. This history obtained by the hospitalist was reviewed and confirmed with the patient. Patient claims that his chest discomfort is coming from his respiratory problems. Patient does however have significant cardiac risk factors. Patient denied any history of blood clots in the legs are in the lungs. Patient has noticed some difficulty with control of his blood pressure and is worried about stroke. Past Medical History Cardiac Medical History: Reports: Coronary Artery Disease, Hyperlipidema, Hypertension Denies: Myocardial Infarction Pulmonary Medical History: Reports: Chronic Obstructive Pulmonary Disease (COPD) Denies: Asthma, Bronchitis, Pneumonia Neurological Medical History: Denies: Seizures Endocrine Medical History: Denies: Diabetes Mellitus Type 2 GI Medical History: Denies: Gastroesophageal Reflux Disease Musculoskeltal Medical History: Denies: Arthritis Psychiatric Medical History: Reports: Depression Hematology: Denies: Anemia Past Surgical History Past Surgical History: Reports: Other - Right nephrectomy Social History Information Source: Patient Smoking Status: Current Every Day Smoker Frequency of Alcohol Use: Occasional Hx Recreational Drug Use: No Drugs: None Hx Prescription Drug Abuse: No - Advance Directive Resuscitation Status: Full Code Family History Family History: CAD, Hypertension, Other - Brother, mother Parental Family History Reviewed: Yes Children Family History Reviewed: Yes Sibling(s) Family History Reviewed.: Yes Medication/Allergy Home Medications: Amlodipine Besylate [Norvasc 10 mg Tablet] 10 mg PO DAILY 30 Days #30 tablet 06/04 Azithromycin [Zithromax 250 mg Tablet] 250 mg PO QPM 2 Days #2 tablet 04/27/18 Clopidogrel Bisulfate [Plavix 75 mg Tablet] 75 mg PO DAILY 30 Days #30 tablet Hydrochlorothiazide [Hydrodiuril 25 mg Tablet] 25 mg PO DAILY 30 Days #30 tablet 04/27/18 Prednisone [Deltasone 20 mg Tablet] 40 mg PO DAILY 2 Days #4 tablet 04/27/18 Valsartan [Diovan 160 mg Tablet] 160 mg PO Q12 30 Days #60 tablet 04/27/18 Allergies/Adverse Reactions: aspirin Allergy (Verified 04/26/18 09:24) hydromorphone HCl [From Dilaudid] Adverse Reaction (Unknown, Verified 11/24/15 20:19) Nausea Review of Systems Review of Systems: Please see history of present illness and past medical history as wall. Constitutional: No fever or chills reported. Head : No recent chronic headaches, recent head injury. Eyes: No recent eye pain, diplopia, redness, discharge, acute visual changes. Ears: No recent chronic ear pain, acute hearing loss, ear discharge. Oral cavity: No recent ulcerations, bleeding, oral cavity discomfort. Neck: No recent acute neck pain reported. Hematologic: No recent easy bruising or bleeding. Lymphatic: No recent lymph node enlargement reported. Cardiovascular system review: See history of present illness. Respiratory system review: No hemoptysis or blood clots in the lungs reported. Mild Shortness of breath on exertion Gastrointestinal system review: Negative for any recent acute hematemesis, melena. Genitourinary system review: No recent acute or chronic hematuria, flank pain, UTI etc. reported. Skin system review: Negative for any recent abnormal bruising, no rash, no pruritus reported. Neurologic: No prior history of strokes, mini strokes, seizure disorder. Psychologic: No history of major psychosis or major depression reported. Musculoskeletal: Minor aches and pains reported. No acute joint swelling reported. Endocrine: No recent polyuria, polydipsia, recent heat or cold intolerance. Physical Exam Vital Signs: Temp Pulse Resp BP Pulse Ox 98.2 F 78 20 145/90 H 97 04/23/18 20:20 04/23/18 20:20 04/23/18 20:20 04/23/18 20:20 04/23/18 20:20 Intake & Output 04/22/18 04/23/18 04/24/18 06:59 06:59 06:59 Weight 108.9 kg Exam: GENERAL: well-nourished and in no acute distress. Alert and oriented x3 HEAD: Atraumatic, normocephalic. EYES: Pupils equal round and reactive to light, extraocular movements intact, sclera anicteric, conjunctiva are normal. ENT: TMs normal, nares patent, oropharynx clear without exudates. Moist mucous membranes. No oral ulcerations or bleeding gums noted NECK: supple without lymphadenopathy. Trachea is central. No cervical or axillary lymphadenopathy noted. Carotids are 2+, JVD WNL LUNGS: Respiration seems nonlabored, no significant accessory muscle action noted. Breath sounds clear to auscultation bilaterally and equal noted. Bilateral scattered wheezes rales or rhonchi noted. No significant dullness noted on percussion. Emphysematous chest. CHEST: Palpation of the chest wall shows no significant chest wall tenderness. 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 ABDOMEN: Soft, no significant tenderness appreciated, normoactive bowel sounds. No guarding, no rebound. No rigidity noted . No masses appreciated. EXTREMITIES: Pedal pulses are 1-2+, no calf tenderness noted. No clubbing or cyanosis. negative pedal edema noted NEUROLOGICAL: Focused neurological exam showed no significant neurologic deficit. Normal speech, no focal weakness appreciated. PSYCH: Normal mood, normal affect. Judgment and insight within normal limits. SKIN: No significant ecchymosis, skin is noted to be warm. MUSCULOSKELETAL EXAM: No significant acute joint swelling noted. Results EKG Comments: Sinus rhythm, no acute ST-T wave changes are noted. Impressions: Chest X-Ray 04/23/18 00:00 IMPRESSION: NO ACUTE RADIOGRAPHIC FINDING IN THE CHEST. Abdomen Ultrasound 04/23/18 11:07 IMPRESSION: Fatty infiltration of the liver. Borderline common bile duct. Correlate for biliary obstruction. Assessment & Plan - Diagnosis (1) Chest pain Qualifiers: Chest pain type: unspecified Qualified Code(s): R07.9 - Chest pain, unspecified Is this a current diagnosis for this admission?: Yes (2) Hypertension Qualifiers: Hypertension type: essential hypertension Qualified Code(s): I10 - Essential (primary) hypertension Is this a current diagnosis for this admission?: Yes (4) Hyperlipidemia Qualifiers: Hyperlipidemia type: unspecified Qualified Code(s): E78.5 - Hyperlipidemia , unspecified Is this a current diagnosis for this admission?: Yes (5) Tobacco abuse Is this a current diagnosis for this admission?: Yes (6) COPD (chronic obstructive pulmonary disease) Qualifiers: COPD type: unspecified COPD Qualified Code(s): J44.9 - Chronic obstructive pulmonary disease, unspecified Is this a current diagnosis for this admission?: Yes (7) Erythrocytosis Is this a current diagnosis for this admission?: Yes - Notes Notes: Chest pain: Patient has some typical and atypical features of chest pain. Cardiac enzymes so far has been negative. Electrocardiogram did not show any definitive ST segment changes. Multiple differential diagnoses exist in this patient. In descending order of probability this includes underlying coronary artery disease, gastroesophageal reflux, musculoskeletal pain, referred pain from elsewhere, anxiety panic disorder etc.Patient has significant cardiac risk factors, which indicates that there is a intermediate probability of chest discomfort coming from underlying CAD. Feel that it would need to be evaluated further. Discussed evaluation to assess this. In this regard risk benefits of nuclear stress test and other alternative processes were discussed in detail. The patient prefers to undergo nuclear stress test. The small risk of radiation , myocardial infarction, , cardiac arrhythmias, respiratory distress etc. were discussed. Patient understood the risks and gave informed consent. Nuclear stress test was therefore scheduled. For risk evaluation, patient is also being scheduled for a 2-D echocardiogram. Patient questions were answered. Hypertension: Blood pressure goal in this patient is 135/85 or less. This was discussed with the patient. Currently blood pressure under reasonable control. Better medication for this patient are JESSICA inhibitor/ARB/beta chioma etc. discussed side effects of uncontrolled hypertension and also severe hypotension. Renal insufficiency: Patient noted to have mild renal insufficiency. He is noted to have just one kidney other kidney being surgically absent. Discussed avoidance of nonsteroidal anti-inflammatory and other potential nephrotoxic agents. Hyperlipidemia: LDL goal is less than 70. Recommend statin therapy at least intermediate or high dose, of high potency status. Periodic lipid panel and liver panel is indicated. Patient to report any significant muscle discomfort or other side effects. Tobacco abuse: Patient advised in tobacco cessation. COPD: Patient noted to have significant COPD. Patient advised against tobacco smoking. Continue current steroids and inhaler therapy as prescribed by the other physician. Erythrocytosis: Possibly related to COPD but patient may have nocturnal hypoxemia. Patient does have history of snoring. Have discussed further evaluation with a sleep study as an outpatient. - Time Time Spent: 30 to 50 Minutes - CODE STATUS was discussed, patient remains full code. More than 50% of the time spent coordinating care, discussing management plans with involved caregivers. Management plans discussed with involved personnels. Medical decision making was of moderate to high complexity, patient 's has multiple comorbidities. Medications reviewed and adjusted accordingly: Yes
== END 2018-04-27 12:13 | disposition home or self-care (01) | DRG 194 ==
LOC: ER 08:26 → EH 13:03 → OBSVTOIN 13:03 → 5 14:45
PROVIDERS: ADMIT Internal Medicine; ATTEND Internal Medicine
PROC: 3E0F73Z Introduction of Anti-inflammatory into Respiratory Tract, Via Natural or Artificial Opening (ICD-10-PCS; principal; 2018-04-23)
DX: J18.9 Pneumonia, unspecified organism (principal); J44.0 Chronic obstructive pulmonary disease with (acute) lower respiratory infection; J44.1 Chronic obstructive pulmonary disease with (acute) exacerbation; I10 Essential (primary) hypertension; D75.1 Secondary polycythemia; R31.29 Other microscopic hematuria; E78.00 Pure hypercholesterolemia, unspecified; K76.0 Fatty (change of) liver, not elsewhere classified; K57.30 Diverticulosis of large intestine without perforation or abscess without bleeding; I25.10 Atherosclerotic heart disease of native coronary artery without angina pectoris; F17.210 Nicotine dependence, cigarettes, uncomplicated; F32.9 Major depressive disorder, single episode, unspecified; Z79.899 Other long term (current) drug therapy; Z90.5 Acquired absence of kidney; Z88.6 Allergy status to analgesic agent; Z82.49 Family history of ischemic heart disease and other diseases of the circulatory system
CPT/HCPCS: 36415; 71046; 71275; 74177; 76700; 78452; 80048; 80053; 81001; 83036; 83880; 84484; 85025; 85027; 93005; 93010; 93017; 93976; 99285; A9500; J1644; J1956; J2785; J3490; J7512; J7620; Q9969

== ENCOUNTER 2019-09-17 09:49 | Observation (INO) | payer OTHER ==
[2019-09-17 10:33] LABS: ABSOLUTE BASOPHILS # (AUTO) 0.1 10^3/uL (0.0-0.2); ABSOLUTE EOSINOPHILS # (AUTO) 0.1 10^3/uL (0.0-0.6); ABSOLUTE LYMPHOCYTES (AUTO) 0.9 10^3/uL (0.5-4.7); ABSOLUTE MONOCYTES (AUTO) 0.7 10^3/uL (0.1-1.4); ABSOLUTE NEUT (AUTO) 6.7 10^3/uL (1.7-8.2); BASOPHILS % (AUTO) 0.6 % (0-2); EOSINOPHILS % (AUTO) 1.1 % (0-6); HEMATOCRIT 49.9 % (37.9-51.0); HEMOGLOBIN 17.5 g/dL (13.5-17.0); LYMPHOCYTES % (AUTO) 10.7 % (13-45); MEAN CORPUSCULAR HGB CONC 35.1 g/dL (32.0-36.0); MEAN CORPUSCULAR VOLUME 97 fl (80-97); MONOCYTES % (AUTO) 7.9 % (3-13); PLATELET COUNT 209 10^3/uL (150-450); RED BLOOD COUNT 5.15 10^6/uL (4.35-5.55); RED CELL DISTRIBUTION WIDTH 12.9 % (11.5-14.0); SEGMENTED NEUTROPHILS % (AUTO) 79.7 % (42-78); TOTAL CELLS COUNTED % (AUTO) 100 %; WHITE BLOOD COUNT 8.4 10^3/uL (4.0-10.5)
[2019-09-17 10:56] LABS: ALBUMIN 4.3 g/dL (3.5-5.0); ALKALINE PHOSPHATASE 96 U/L (38-126); ANION GAP 10 (5-19); ASPARTATE AMINO TRANSFERASE 43 U/L (17-59); BILIRUBIN,DIRECT 0.1 mg/dL (0.0-0.4); BILIRUBIN,TOTAL 0.7 mg/dL (0.2-1.3); BLOOD UREA NITROGEN 17 mg/dL (7-20); CALCIUM 9.4 mg/dL (8.4-10.2); CARBON DIOXIDE 28 mmol/L (22-30); CHLORIDE 98 mmol/L (98-107); CREATINE KINASE 52 U/L (55-170); GLUCOSE 125 mg/dL (75-110); POTASSIUM 4.3 mmol/L (3.6-5.0); TOTAL PROTEIN 7.8 g/dL (6.3-8.2)
--- NOTE | 2019-09-17 11:01 | RADIOLOGY REPORT (SQ) ---
EXAM DESCRIPTION: CHEST 2 VIEWS COMPLETED DATE/TIME: 09/17/2019 10:51 am REASON FOR STUDY: CP/SOB COMPARISON: None. EXAM PARAMETERS: NUMBER OF VIEWS: Two views. TECHNIQUE: PA and lateral views of the chest were obtained.. RADIATION DOSE: NA LIMITATIONS: none FINDINGS: LUNGS AND PLEURA: Acute asymmetric parenchymal opacities in the right middle lobe. There is no pleural effusion or pneumothorax. MEDIASTINUM AND HILAR STRUCTURES: No mediastinal or hilar contour abnormality. HEART AND VASCULAR STRUCTURES: The cardiac silhouette and pulmonary vasculature are within normal ortiz its. BONES: No acute findings. HARDWARE: None in the chest. OTHER: No other finding. IMPRESSION: Findings concerning for a right middle lobe pneumonia. TECHNICAL DOCUMENTATION: JOB ID: [id number] [employer]- All Rights Reserved Reading location - IP/workstation name: [email or web address]
[2019-09-17 11:07] LABS: CREATINE KINASE MB 1.28 ng/mL (<4.55); TROPONIN I < 0.012 ng/mL
[2019-09-17] MEDS ORDERED: CEFTRIAXONE INJ 1000 MG VIAL IV ONE (11:18)
[2019-09-17] MEDS ORDERED: AZITHROMYCIN INJ 500 MG VIAL IV ONE (11:18)
--- NOTE | 2019-09-17 11:32 | ER Document Report ---
ED General - General Chief Complaint: Chest Pain Stated Complaint: CHEST PAIN Time Seen by Provider: 09/17/19 11:16 Primary Care Provider: DALJIT GOMEZ PA-C [Primary Care Provider] - Follow up as needed Mode of Arrival: Ambulatory Information source: Patient TRAVEL OUTSIDE OF THE [place] IN LAST 30 DAYS: No - HPI Onset: This morning Onset/Duration: Sudden Quality of pain: Achy Severity: Severe Pain Level: 4 Associated symptoms: Fever, Hoarseness, Hurts to breath, Nausea, Shortness of breath, Sweating, Weakness, Other - Flank pain on left Exacerbated by: Movement, Coughing, Deep breathing Relieved by: Denies Similar symptoms previously: No Recently seen / treated by doctor: No - Related Data Allergies/Adverse Reactions: aspirin Allergy (Verified 04/26/18 09:24) hydromorphone HCl [From Dilaudid] Adverse Reaction (Unknown, Verified 11/24/15 20:19) Nausea Past Medical History - General Information source: Patient - Social History Smoking Status: Current Every Day Smoker Cigarette use (# per day): Yes Chew tobacco use (# tins/day): No Smoking Education Provided: Yes Frequency of alcohol use: None Drug Abuse: None Family History: CAD, Hypertension, Other - Brother, mother Patient has suicidal ideation: No Patient has homicidal ideation: No - Past Medical History Cardiac Medical History: Reports: Hx Coronary Artery Disease, Hx Hypercholesterolemia, Hx Hypertension Denies: Hx Heart Attack Pulmonary Medical History: Reports: Hx COPD Denies: Hx Asthma, Hx Bronchitis, Hx Pneumonia Neurological Medical History: Denies: Hx Cerebrovascular Accident, Hx Seizures Endocrine Medical History: Denies: Hx Diabetes Mellitus Type 2 GI Medical History: Denies: Hx Gastroesophageal Reflux Disease Musculoskeletal Medical History: Denies Hx Arthritis Psychiatric Medical History: Reports: Hx Depression Past Surgical History: Reports: Hx Kidney (Renal Surgery) - right nephrectomy, Other - Right nephrectomy - Immunizations Hx Diphtheria, Pertussis, Tetanus Vaccination: No Review of Systems - Review of Systems Constitutional: Chills, Diaphoresis, Fever, Malaise, Weakness EENT: No symptoms reported, Sinus pressure Cardiovascular: Chest pain - Sided chest pain around right nipple, Palpitations, Orthopnea, Dyspnea, Dizziness, Lightheaded Respiratory: Cough Gastrointestinal: No symptoms reported Genitourinary: Dysuria, Flank pain - Flank pain only remaining kidney on left Male Genitourinary: No symptoms reported Musculoskeletal: No symptoms reported Skin: No symptoms reported Hematologic/Lymphatic: No symptoms reported Neurological/Psychological: No symptoms reported Physical Exam - Vital signs Vitals: Temp Pulse Resp BP Pulse Ox 98.0 F 112 H 28 H 170/94 H 91 L 09/17/19 09:54 09/17/19 09:54 09/17/19 09:54 09/17/19 09:54 09/17/19 09:54 Interpretation: Hypertensive, Tachycardic, Tachypneic, Febrile - General General appearance: Alert In distress: Mild - HEENT Head: Normocephalic Eyes: Normal Conjunctiva: Normal Cornea: Normal Extraocular movements intact: Yes Eyelashes: Normal Pupils: PERRL Nasal: Normal Mouth/Lips: Normal Mucous membranes: Dry Pharynx: Normal Neck: Normal - Respiratory Respiratory status: Labored Chest status: Nontender Breath sounds: Decreased air movement Chest palpation: Normal - Cardiovascular Rhythm: Tachycardia Heart sounds: Normal auscultation Murmur: No Friction rub: No Vee's crunch: No - Abdominal Inspection: Normal Distension: No distension Bowel sounds: Normal Tenderness: Nontender - Genitourinary Tenderness: Nontender Cremasteric reflex: Normal Scrotum: Normal - Back Back: Tender - Left flank CVA - Extremities General upper extremity: Normal inspection General lower extremity: Normal inspection - Neurological Neuro grossly intact: Yes Cognition: Normal Orientation: AAOx4 Sujit Coma Scale Eye Opening: Spontaneous [place] Coma Scale Verbal: Oriented [place] Coma Scale Motor: Obeys Commands Sujit Coma Scale Total: 15 Speech: Normal Cranial nerves: Normal Cerebellar coordination: Normal Course - Vital Signs Vital signs: Temp Pulse Resp BP Pulse Ox 98.0 F 112 H 28 H 170/94 H 91 L 09/17/19 09:54 09/17/19 09:54 09/17/19 09:54 09/17/19 09:54 09/17/19 09:54 - Laboratory Result Diagrams: 09/17/19 10:15 09/17/19 10:15 Laboratory results interpreted by me: 09/17/19 09/17/19 10:15 10:15 Hgb 17.5 H MCH 34.0 H Lymph % (Auto) 10.7 L Seg Neutrophils % 79.7 H Sodium 135.9 L Glucose 125 H Creatine Kinase 52 L - Diagnostic Test Radiology reviewed: Reports reviewed - EKG Interpretation by Me EKG shows normal: Sinus rhythm Rate: Tachycardia Rhythm: NSR Critical Care Note - Critical Care Note Total time excluding time spent on procedures (mins): 90 Comments: Book to Aileen and then to Isak Pacheco at 1140 about admission. Discharge - Discharge Clinical Impression: RML pneumonia Qualifiers: Pneumonia type: aspiration pneumonia Aspiration pneumonia type: unspecified Qualified Code(s): J69.0 - Pneumonitis due to inhalation of food and vomit Condition: Fair Disposition: ADMITTED INPATIENT Unit Admitted: Telemetry Additional Instructions: Transfer patient to floor Dr. Isak Augustine care Referrals: DAJLIT GOMEZ PA-C [Primary Care Provider] - Follow up as needed
[2019-09-17] MEDS ORDERED: HYDRALAZINE HCL INJ/PF 20 MG/1 ML SDV IV PRN (12:04)
[2019-09-17] MEDS ORDERED: ACETAMINOPHEN 325 MG TABLET PO PRN (12:05)
[2019-09-17] MEDS ORDERED: IPRATROPIUM/ALBUTEROL 0.5-2.5 MG/3 ML AMPUL NEB SCH ×2 (12:15→14:00)
[2019-09-17 12:23] LABS: AMORPHOUS SEDIMENT,URINE TRACE /HPF; APPEARANCE,URINE CLOUDY; BILIRUBIN,URINE NEGATIVE (NEGATIVE); COLOR,URINE AMBER; GLUCOSE, URINE NEGATIVE (NEGATIVE); KETONES,URINE TRACE mg/dL (NEGATIVE); LEUKOCYTE ESTERASE,URINE NEGATIVE (NEGATIVE); NITRITE,URINE NEGATIVE (NEGATIVE); PROTEIN,URINE >=500 mg/dL (NEGATIVE); URINE SPECIFIC GRAVITY 1.029
[2019-09-17] MEDS: KETOROLAC TROMETHAMINE INJ/PF 30 MG/1 ML SDV IV PRN ×2 (12:50→21:36)
[2019-09-17] MEDS: METHYLPREDNISOLONE INJ 40 MG/1 ML SDV IV SCH ×2 (12:53→21:36)
[2019-09-17 12:59] LABS: A TYPE INFLUENZA AG NEGATIVE (NEGATIVE); B INFLUENZA AG NEGATIVE (NEGATIVE)
[2019-09-17] MEDS ORDERED: NICOTINE 21 MG/24 HR PATCH.TD24 TD PRN (13:20)
--- NOTE | 2019-09-17 13:20 | PDOC H&P ---
History of Present Illness Admission Date/PCP: DALJIT GOMEZ PA-C Patient complains of: cough, chest pain History of Present Illness: VENKAT BENTLEY is a 59 year old male with a past medical history of hypertension, COPD not on home O2, solitary kidney and chronic heavy cigarette smoking who presented with cough and right-sided chest pain. Patient says that he has been having increasingly productive cough with yellowish to brownish sputum for almost a month now. He says he has baseline cough from his COPD and smoking. He reports subjective chills in the past few days. He says he started developing worsening pleuritic right-sided chest pain and increasing shortness of breath which he describes as sharp and painful when he takes a deep breath. In the ER, he was noted to have a right middle lobe pneumonia. Continues to smoke 1 to 2 packs of cigarettes a day. He says he drinks 1-2 times a week and usually consumes 1/5 of whiskey per drinking session. Past Medical History Cardiac Medical History: Reports: Coronary Artery Disease, Hyperlipidema, Hypertension Denies: Myocardial Infarction Pulmonary Medical History: Reports: Chronic Obstructive Pulmonary Disease (COPD) Denies: Asthma, Bronchitis, Pneumonia Neurological Medical History: Denies: Seizures Endocrine Medical History: Denies: Diabetes Mellitus Type 2 GI Medical History: Denies: Gastroesophageal Reflux Disease Musculoskeltal Medical History: Denies: Arthritis Psychiatric Medical History: Reports: Depression Hematology: Denies: Anemia Past Surgical History Past Surgical History: Reports: Other - Right nephrectomy Social History Smoking Status: Current Every Day Smoker Electronic Cigarette use?: No Frequency of Alcohol Use: Occasional Hx Recreational Drug Use: No Drugs: None Hx Prescription Drug Abuse: No Family History Family History: CAD, Hypertension, Other - Brother, mother Parental Family History Reviewed: Yes - No premature CAD Children Family History Reviewed: No Sibling(s) Family History Reviewed.: No Medication/Allergy Home Medications: Amlodipine Besylate [Norvasc 10 mg Tablet] 10 mg PO DAILY 09/17/19 Fluticasone/Vilanterol [Breo 100-25 Mcg Ellipta 14 Dose/Dpi] 1 puff IH QAM 09/17/19 Losartan Potassium 100 mg PO DAILY 09/17/19 Levofloxacin [Levaquin 500 mg Tablet] 500 mg PO DAILY 5 Days #5 tablet 09/19/19 Nicotine [Nicoderm 21 mg/24 Hr Transderm Patch] 1 each TD DAILYP PRN #30 patch.td24 09/19/19 Prednisone 10 mg PO BID 5 Days #10 tablet 09/19/19 Allergies/Adverse Reactions: ibuprofen Adverse Reaction (Mild, Verified 09/17/19 17:13) Hives hydromorphone HCl [From Dilaudid] Adverse Reaction (Unknown, Verified 11/24/15 20:19) Nausea Review of Systems All systems: reviewed and no additional remarkable complaints except as stated - As mentioned in HPI Physical Exam Vital Signs: Temp Pulse Resp BP Pulse Ox 98.0 F 112 H 28 H 170/94 H 91 L 09/17/19 09:54 09/17/19 09:54 09/17/19 09:54 09/17/19 09:54 09/17/19 09:54 Intake & Output 09/16/19 09/17/19 09/18/19 06:59 06:59 06:59 Weight 235 lb General appearance: PRESENT: no acute distress, well-developed, well-nourished Head exam: PRESENT: atraumatic, normocephalic Eye exam: PRESENT: conjunctiva pink, EOMI, PERRLA. ABSENT: scleral icterus Ear exam: PRESENT: normal external ear exam Mouth exam: PRESENT: moist, tongue midline Neck exam: ABSENT: carotid bruit, JVD, lymphadenopathy, thyromegaly Respiratory exam: PRESENT: rales, rhonchi, wheezes Cardiovascular exam: PRESENT: RRR. ABSENT: diastolic murmur, rubs, systolic murmur Pulses: PRESENT: normal dorsalis pedis pul GI/Abdominal exam: PRESENT: normal bowel sounds, soft. ABSENT: distended, guarding, mass, organolmegaly, rebound, tenderness Rectal exam: PRESENT: deferred Extremities exam: PRESENT: full ROM. ABSENT: calf tenderness, clubbing, pedal edema Neurological exam: PRESENT: alert, awake, oriented to person, oriented to place, oriented to time, oriented to situation, CN II-XII grossly intact. ABSENT: motor sensory deficit Results Laboratory Results: 09/17/19 10:15 09/17/19 10:15 09/17/19 09/17/19 10:15 10:15 WBC 8.4 RBC 5.15 Hgb 17.5 H Hct 49.9 MCV 97 MCH 34.0 H MCHC 35.1 RDW 12.9 Plt Count 209 Seg Neutrophils % 79.7 H Sodium 135.9 L Potassium 4.3 Chloride 98 Carbon Dioxide 28 Anion Gap 10 BUN 17 Creatinine 0.97 Est GFR ( Amer) > 60 Glucose 125 H Calcium 9.4 Total Bilirubin 0.7 AST 43 Alkaline Phosphatase 96 Total Protein 7.8 Albumin 4.3 09/17/19 09/17/19 10:15 10:15 Creatine Kinase 52 L CK-MB (CK-2) 1.28 Troponin I < 0.012 Impressions: Chest X-Ray 09/17/19 00:00 IMPRESSION: Findings concerning for a right middle lobe pneumonia. Assessment and Plan - Diagnosis (1) Community acquired pneumonia Qualifiers: Laterality: right Lung location: middle lobe of lung Qualified Code(s): J18.9 - Pneumonia, unspecified organism Is this a current diagnosis for this admission?: Yes Plan: Continue Rocephin and azithromycin. Sputum culture ordered. Breathing treatments. (2) COPD exacerbation Is this a current diagnosis for this admission?: Yes Plan: Start IV steroids and breathing treatments. (3) Tobacco abuse Is this a current diagnosis for this admission?: Yes Plan: Counseled on cessation. Will add nicotine patch as well. (4) Essential hypertension Is this a current diagnosis for this admission?: Yes Plan: Resume home meds once verified. (5) Hyperlipidemia Qualifiers: Hyperlipidemia type: unspecified Qualified Code(s): E78.5 - Hyperlipidemia, unspecified Is this a current diagnosis for this admission?: Yes (6) Solitary kidney, acquired Is this a current diagnosis for this admission?: Yes - Time Time Spent with patient: 25-34 minutes
--- NOTE | 2019-09-17 13:22 | ADVANCED CARE ---
- Diagnosis (1) Community acquired pneumonia Diagnosis Current: Yes (2) COPD exacerbation Diagnosis Current: Yes (3) Tobacco abuse Diagnosis Current: Yes (4) Essential hypertension Diagnosis Current: Yes (5) Hyperlipidemia Diagnosis Current: Yes (6) Solitary kidney, acquired Diagnosis Current: Yes Resuscitation Status: Full Code Discussion: Discussed with patient. He is a full code and prefers to receive chest compressions, defibrillation or mechanical ventilation if the need arises. He he says his daughter, Isamar Stephenson is his surrogate medical decision maker.
[2019-09-17] MEDS ORDERED: ACETYLCYSTEINE 20% SOLN 800 MG/4 ML VIAL.NEB NEB SCH ×2 (14:30→22:00)
[2019-09-17] MEDS: HEPARIN SOD (PORCINE) 5,000 UNIT/ML 1 ML VIAL SUBCUT SCH ×2 (16:00→21:36)
[2019-09-17] MEDS: IPRATROPIUM/ALBUTEROL 0.5-2.5 MG/3 ML AMPUL NEB SCH (19:57)
[2019-09-17] MEDS: ACETYLCYSTEINE 20% SOLN 800 MG/4 ML VIAL.NEB NEB SCH (19:57)
[2019-09-18] MEDS: IPRATROPIUM/ALBUTEROL 0.5-2.5 MG/3 ML AMPUL NEB SCH ×4 (02:37→20:45)
[2019-09-18] MEDS: HEPARIN SOD (PORCINE) 5,000 UNIT/ML 1 ML VIAL SUBCUT SCH ×3 (05:57→21:38)
[2019-09-18] MEDS: ACETYLCYSTEINE 20% SOLN 800 MG/4 ML VIAL.NEB NEB SCH ×2 (08:57→20:45)
[2019-09-18] MEDS ORDERED: AZITHROMYCIN INJ 500 MG VIAL IV SCH (10:00)
[2019-09-18] MEDS: METHYLPREDNISOLONE INJ 40 MG/1 ML SDV IV SCH ×2 (10:10→21:37)
[2019-09-18] MEDS: CEFTRIAXONE 1 GM/D5W RTU 1 GM/50 ML RTUPB IV SCH (10:10)
[2019-09-18] MEDS ORDERED: AZITHROMYCIN 500 MG in DEXTROSE 5%-WATER 250 ML IV SCH (12:00)
[2019-09-18] MEDS: KETOROLAC TROMETHAMINE INJ/PF 30 MG/1 ML SDV IV PRN ×2 (12:28→20:07)
--- NOTE | 2019-09-18 15:36 | PDOC PROGRESS REPORT ---
Subjective Progress Note for:: 09/18/19 Subjective:: This a 59 year old male with a past medical history of hypertension, COPD not on home O2, solitary kidney and chronic heavy cigarette smoking who presented with cough and right-sided chest pain. She was admitted for right middle lobe pneumonia and COPD exacerbation. He was started on IV antibiotics. No acute event overnight. On encounter this morning, patient reports that he slightly feels better today. Shortness of breath has improved this well. Denies chest pain. Reason For Visit: PNEUMONIA, COPD EXACERBATION Physical Exam Vital Signs: Temp Pulse Resp BP Pulse Ox 97.6 F 91 18 131/80 H 91 L 09/18/19 07:00 09/18/19 13:53 09/18/19 13:53 09/18/19 07:00 09/18/19 13:53 Intake & Output 09/17/19 09/18/19 09/19/19 06:59 06:59 06:59 Intake Total 1444 300 Balance 1444 300 Weight 219 lb 2.232 oz General appearance: PRESENT: no acute distress, well-developed, well-nourished Head exam: PRESENT: atraumatic, normocephalic Eye exam: PRESENT: conjunctiva pink, EOMI, PERRLA. ABSENT: scleral icterus Ear exam: PRESENT: normal external ear exam Mouth exam: PRESENT: moist, tongue midline Neck exam: ABSENT: carotid bruit, JVD, lymphadenopathy, thyromegaly Respiratory exam: PRESENT: rhonchi. ABSENT: rales, wheezes Cardiovascular exam: PRESENT: RRR. ABSENT: diastolic murmur, rubs, systolic murmur Pulses: PRESENT: normal dorsalis pedis pul GI/Abdominal exam: PRESENT: normal bowel sounds, soft. ABSENT: distended, guarding, mass, organolmegaly, rebound, tenderness Rectal exam: PRESENT: deferred Extremities exam: PRESENT: full ROM. ABSENT: calf tenderness, clubbing, pedal edema Neurological exam: PRESENT: alert, awake, oriented to person, oriented to place, oriented to time, oriented to situation, CN II-XII grossly intact. ABSENT: motor sensory deficit Results Laboratory Results: 09/17/19 10:15 09/17/19 10:15 09/17/19 09/17/19 09/17/19 10:15 10:15 13:19 Creatine Kinase 52 L CK-MB (CK-2) 1.28 Troponin I < 0.012 < 0.012 Impressions: Chest X-Ray 09/17/19 00:00 IMPRESSION: Findings concerning for a right middle lobe pneumonia. Assessment and Plan - Diagnosis (1) Community acquired pneumonia Qualifiers: Laterality: right Lung location: middle lobe of lung Qualified Code(s): J18.9 - Pneumonia, unspecified organism Is this a current diagnosis for this admission?: Yes Plan: Continue Rocephin and azithromycin. Sputum culture pending. Breathing treatments. (2) COPD exacerbation Is this a current diagnosis for this admission?: Yes Plan: Improved. Continue breathing treatments and steroids. (3) Tobacco abuse Is this a current diagnosis for this admission?: Yes Plan: Counseled on cessation. Will add nicotine patch as well. (4) Essential hypertension Is this a current diagnosis for this admission?: Yes Plan: Resume losartan and amlodipine. I (5) Hyperlipidemia Qualifiers: Hyperlipidemia type: unspecified Qualified Code(s): E78.5 - Hyperlipidemia, unspecified Is this a current diagnosis for this admission?: Yes (6) Solitary kidney, acquired Is this a current diagnosis for this admission?: Yes - Time Time Spent with patient: 25-34 minutes
[2019-09-18] MEDS ORDERED: (PENDING PHARMACY ID) (Losartan Potassium [Losartan Potassium] 100 MG) PO SCH (15:45)
[2019-09-18] MEDS: LOSARTAN POTASSIUM 50 MG TABLET PO SCH (20:11)
--- NOTE | 2019-09-18 23:29 | EKG REPORT ---
SEVERITY:- OTHERWISE NORMAL ECG - SINUS TACHYCARDIA : Confirmed by: Neville Bullard 18-Sep-2019 23:28:54
--- NOTE | 2019-09-18 23:29 | EKG REPORT ---
SEVERITY:- BORDERLINE ECG - SINUS RHYTHM PROBABLE LEFT ATRIAL ABNORMALITY BORDERLINE T ABNORMALITIES, ANT-LAT LEADS : Confirmed by: Neville Bullard 18-Sep-2019 23:28:46
[2019-09-19] MEDS: IPRATROPIUM/ALBUTEROL 0.5-2.5 MG/3 ML AMPUL NEB SCH ×2 (03:22→08:43)
[2019-09-19] MEDS: HEPARIN SOD (PORCINE) 5,000 UNIT/ML 1 ML VIAL SUBCUT SCH (06:03)
[2019-09-19] MEDS: ACETYLCYSTEINE 20% SOLN 800 MG/4 ML VIAL.NEB NEB SCH (08:43)
[2019-09-19] MEDS ORDERED: PREDNISONE 20 MG TABLET PO SCH (10:00)
[2019-09-19] MEDS ORDERED: AMLODIPINE BESYLATE 10 MG TABLET PO SCH (10:00)
[2019-09-19] MEDS: CEFTRIAXONE 1 GM/D5W RTU 1 GM/50 ML RTUPB IV SCH (10:13)
[2019-09-19] MEDS: LOSARTAN POTASSIUM 50 MG TABLET PO SCH (10:13)
--- NOTE | 2019-09-19 10:50 | RADIOLOGY REPORT (SQ) ---
EXAM DESCRIPTION: CHEST SINGLE VIEW COMPLETED DATE/TIME: 09/19/2019 10:05 am REASON FOR STUDY: cough COMPARISON: 09/17/2019. EXAM PARAMETERS: NUMBER OF VIEWS: One view. TECHNIQUE: Single frontal radiographic view of the chest acquired. RADIATION DOSE: NA LIMITATIONS: None. FINDINGS: LUNGS AND PLEURA: Persistent infiltrate in the right lung. Left lung clear. MEDIASTINUM AND HILAR STRUCTURES: No masses. Contour normal. HEART AND VASCULAR STRUCTURES: Heart normal in size. Normal vasculature. BONES: No acute findings. HARDWARE: None in the chest. OTHER: No other significant finding. IMPRESSION: PERSISTENT INFILTRATE IN THE RIGHT LUNG. NO CHANGE. TECHNICAL DOCUMENTATION: JOB ID: [id number] [employer]- All Rights Reserved Reading location - IP/workstation name: [email or web address]
[2019-09-19 11:03] VITALS: BP 166/74
--- NOTE | 2019-09-19 17:47 | PDOC DISCHARGE SUMMARY ---
Impression - Admit/DC Date/PCP Admission Date/Primary Care Provider: 09/17/19 12:08 DALJIT GOMEZ PA-C Discharge Date: 09/19/19 - Discharge Diagnosis (1) Community acquired pneumonia Is this a current diagnosis for this admission?: Yes (2) COPD exacerbation Is this a current diagnosis for this admission?: Yes (3) Tobacco abuse Is this a current diagnosis for this admission?: Yes (4) Essential hypertension Is this a current diagnosis for this admission?: Yes (5) Hyperlipidemia Is this a current diagnosis for this admission?: Yes (6) Solitary kidney, acquired Is this a current diagnosis for this admission?: Yes - Additional Information Resuscitation Status: Full Code Discharge Diet: As Tolerated Discharge Activity: Activity As Tolerated, Balance Activity w/Rest Referrals: DALJIT GOMEZ PA-C [Primary Care Provider] - Follow up as needed Prescriptions: Levofloxacin [Levaquin 500 mg Tablet] 500 mg PO DAILY 5 Days #5 tablet Nicotine [Nicoderm 21 mg/24 Hr Transderm Patch] 1 each TD DAILYP PRN #30 patch.td24 PRN Reason: Prednisone 10 mg PO BID 5 Days #10 tablet Home Medications: Amlodipine Besylate [Norvasc 10 mg Tablet] 10 mg PO DAILY 09/17/19 Fluticasone/Vilanterol [Breo 100-25 Mcg Ellipta 14 Dose/Dpi] 1 puff IH QAM 09/17/19 Losartan Potassium 100 mg PO DAILY 09/17/19 Levofloxacin [Levaquin 500 mg Tablet] 500 mg PO DAILY 5 Days #5 tablet 09/19/19 Nicotine [Nicoderm 21 mg/24 Hr Transderm Patch] 1 each TD DAILYP PRN #30 patch.td24 09/19/19 Prednisone 10 mg PO BID 5 Days #10 tablet 09/19/19 History of Present Illiness History of Present Illness: VENKAT BENTLEY is a 59 year old male with a past medical history of hypertension, COPD not on home O2, solitary kidney and chronic heavy cigarette smoking who presented with cough and right-sided chest pain. Patient says that he has been having increasingly productive cough with yellowish to brownish sputum for almost a month now. He says he has baseline cough from his COPD and smoking. He reports subjective chills in the past few days. He says he started developing worsening pleuritic right-sided chest pain and increasing shortness of breath which he describes as sharp and painful when he takes a deep breath. In the ER, he was noted to have a right middle lobe pneumonia. Continues to smoke 1 to 2 packs of cigarettes a day. He says he drinks 1-2 times a week and usually consumes 1/5 of whiskey per drinking session. Hospital Course Hospital Course: Patient was admitted for right middle lobe pneumonia and COPD exacerbation but he was started on IV antibiotics, steroids and breathing treatments. He promptly improved with above treatments. He was not hypoxic and did not require any supplemental O2 since presentation. He returned to his baseline was ambul ating the hallway on room air without any desaturation or acute issues. He will be discharged on p.o. levofloxacin and prednisone. He was counseled in length about smoking cessation. He will also be given pulmonology outpatient referral and close follow-up with PCP for a repeat chest x-ray 2-3 weeks after completion of antibiotics for pneumonia and lung cancer surveillance as he is very heavy c igarette smoker. Physical Exam Vital Signs: Temp Pulse Resp BP Pulse Ox 97.4 F 89 18 166/74 H 93 09/19/19 11:01 09/19/19 11:01 09/19/19 11:01 09/19/19 11:01 09/19/19 11:01 Intake & Output 09/18/19 09/19/19 09/20/19 06:59 06:59 06:59 Intake Total 1444 3530 50 Balance 1444 3530 50 Weight 219 lb 2.232 oz 224 lb 10.417 oz General appearance: PRESENT: no acute distress, well-developed, well-nourished Head exam: PRESENT: atraumatic, normocephalic Eye exam: PRESENT: conjunctiva pink, EOMI, PERRLA. ABSENT: scleral icterus Ear exam: PRESENT: normal external ear exam Mouth exam: PRESENT: moist, tongue midline Neck exam: ABSENT: carotid bruit, JVD, lymphadenopathy, thyromegaly Respiratory exam: PRESENT: rhonchi. ABSENT: rales, wheezes Cardiovascular exam: PRESENT: RRR. ABSENT: diastolic murmur, rubs, systolic murmur Pulses: PRESENT: normal dorsalis pedis pul GI/Abdominal exam: PRESENT: normal bowel sounds, soft. ABSENT: distended, guarding, mass, organolmegaly, rebound, tenderness Rectal exam: PRESENT: deferred Extremities exam: PRESENT: full ROM. ABSENT: calf tenderness, clubbing, pedal edema Neurological exam: PRESENT: alert, awake, oriented to person, oriented to place, oriented to time, oriented to situation, CN II-XII grossly intact. ABSENT: motor sensory deficit Results Laboratory Results: WBC 8.4 10^3/uL (4.0-10.5) 09/17/19 10:15 RBC 5.15 10^6/uL (4.35-5.55) 09/17/19 10:15 Hgb 17.5 g/dL (13.5-17.0) H 09/17/19 10:15 Hct 49.9 % (37.9-51.0) 09/17/19 10:15 MCV 97 fl (80-97) 09/17/19 10:15 MCH 34.0 pg (27.0-33.4) H 09/17/19 10:15 MCHC 35.1 g/dL (32.0-36.0) 09/17/19 10:15 RDW 12.9 % (11.5-14.0) 09/17/19 10:15 Plt Count 209 10^3/uL (150-450) 09/17/19 10:15 Lymph % (Auto) 10.7 % (13-45) L 09/17/19 10:15 [place] % (Auto) 7.9 % (3-13) 09/17/19 10:15 Eos % (Auto) 1.1 % (0-6) 09/17/19 10:15 Baso % (Auto) 0.6 % (0-2) 09/17/19 10:15 Absolute Neuts (auto) 6.7 10^3/uL (1.7-8.2) 09/17/19 10:15 Absolute Lymphs (auto) 0.9 10^3/uL (0.5-4.7) 09/17/19 10:15 Absolute Monos (auto) 0.7 10^3/uL (0.1-1.4) 09/17/19 10:15 Absolute Eos (auto) 0.1 10^3/uL (0.0-0.6) 09/17/19 10:15 Absolute Basos (auto) 0.1 10^3/uL (0.0-0.2) 09/17/19 10:15 Seg Neutrophils % 79.7 % (42-78) H 09/17/19 10:15 Sodium 135.9 mmol/L (137-145) L 09/17/19 10:15 Potassium 4.3 mmol/L (3.6-5.0) 09/17/19 10:15 Chloride 98 mmol/L (98-107) 09/17/19 10:15 Carbon Dioxide 28 mmol/L (22-30) 09/17/19 10:15 Anion Gap 10 (5-19) 09/17/19 10:15 BUN 17 mg/dL (7-20) 09/17/19 10:15 Creatinine 0.97 mg/dL (0.52-1.25) 09/17/19 10:15 Est GFR ( Amer) > 60 (>60) 09/17/19 10:15 Est GFR (MDRD) Non-Af > 60 (>60) 09/17/19 10:15 Glucose 125 mg/dL (75-110) H 09/17/19 10:15 Calcium 9.4 mg/dL (8.4-10.2) 09/17/19 10:15 Total Bilirubin 0.7 mg/dL (0.2-1.3) 09/17/19 10:15 Direct Bilirubin 0.1 mg/dL (0.0-0.4) 09/17/19 10:15 Neonat Total Bilirubin Not Reportable 09/17/19 10:15 Neonat Direct Bilirubin Not Reportable 09/17/19 10:15 Neonat Indirect Bili Not Reportable 09/17/19 10:15 AST 43 U/L (17-59) 09/17/19 10:15 ALT 57 U/L (<50) 09/17/19 10:15 Alkaline Phosphatase 96 U/L (38-126) 09/17/19 10:15 Creatine Kinase 52 U/L (55-170) L 09/17/19 10:15 CK-MB (CK-2) 1.28 ng/mL (<4.55) 09/17/19 10:15 Troponin I < 0.012 ng/mL 09/17/19 13:19 Total Protein 7.8 g/dL (6.3-8.2) 09/17/19 10:15 Albumin 4.3 g/dL (3.5-5.0) 09/17/19 10:15 Urine Color SHERMAN 09/17/19 11:54 Urine Appearance CLOUDY 09/17/19 11:54 Urine pH 5.0 (5.0-9.0) 09/17/19 11:54 Ur Specific [place] 1.029 09/17/19 11:54 Urine Protein >=500 mg/dL (NEGATIVE) H 09/17/19 11:54 Urine Glucose (UA) NEGATIVE mg/dL (NEGATIVE) 09/17/19 11:54 Urine Ketones TRACE mg/dL (NEGATIVE) H 09/17/19 11:54 Urine Blood MODERATE (NEGATIVE) H 09/17/19 11:54 Urine Nitrite NEGATIVE (NEGATIVE) 09/17/19 11:54 Urine Bilirubin NEGATIVE (NEGATIVE) 09/17/19 11:54 Urine Urobilinogen 2.0 mg/dL (<2.0) H 09/17/19 11:54 Ur Leukocyte Esterase NEGATIVE (NEGATIVE) 09/17/19 11:54 Urine WBC (Auto) 1 /HPF 09/17/19 11:54 Urine RBC (Auto) 7 /HPF 09/17/19 11:54 Squamous Epi Cells Auto <1 /HPF 09/17/19 11:54 Amorphous Sediment Auto TRACE /HPF 09/17/19 11:54 Urine Mucus (Auto) FEW /LPF 09/17/19 11:54 Urine Ascorbic Acid NEGATIVE (NEGATIVE) 09/17/19 11:54 Influenza A (Rapid) NEGATIVE (NEGATIVE) 09/17/19 12:28 Influenza B (Rapid) NEGATIVE (NEGATIVE) 09/17/19 12:28 09/17/19 09/17/19 10:15 13:19 CK-MB (CK-2) 1.28 Troponin I < 0.012 < 0.012 Impressions: Chest X-Ray 09/17/19 00:00 IMPRESSION: Findings concerning for a right middle lobe pneumonia. Chest X-Ray 09/19/19 06:00 IMPRESSION: PERSISTENT INFILTRATE IN THE RIGHT LUNG. NO CHANGE. Stroke Is this a Stroke Patient?: No Acute Heart Failure - Is this a Heart Failure Patient?: No
== END 2019-09-19 11:14 | disposition home or self-care (01) ==
LOC: ER 09:49 → EH 12:08 → 4S 14:34
PROVIDERS: ADMIT Internal Medicine; ATTEND Internal Medicine
DX: J18.9 Pneumonia, unspecified organism (principal); J44.1 Chronic obstructive pulmonary disease with (acute) exacerbation; I10 Essential (primary) hypertension; E78.5 Hyperlipidemia, unspecified; F17.210 Nicotine dependence, cigarettes, uncomplicated; Z79.899 Other long term (current) drug therapy; I25.10 Atherosclerotic heart disease of native coronary artery without angina pectoris; Z82.49 Family history of ischemic heart disease and other diseases of the circulatory system; Z90.5 Acquired absence of kidney
CPT/HCPCS: 93005 ×2; 94640 ×4; 99291; 99292; 96365; 96367; 36415; 87040; 87070; 87086; 87205; 82553; 82550; 85025; 87077; 80053; 81001; 84484; 87804; 71046; 71045; 93010; G0378 ×4; J1644 ×3; J2920 ×2; J1885 ×2; J7512; J0696 ×3; J3490 ×3; J7060; J0456 ×2; J7620 ×3

== ENCOUNTER 2019-10-21 12:08 | Emergency (ER) | payer OTHER ==
[2019-10-21 12:47] LABS: ABSOLUTE BASOPHILS # (AUTO) 0.1 10^3/uL (0.0-0.2); ABSOLUTE LYMPHOCYTES (AUTO) 1.1 10^3/uL (0.5-4.7); ABSOLUTE MONOCYTES (AUTO) 0.8 10^3/uL (0.1-1.4); ABSOLUTE NEUT (AUTO) 7.8 10^3/uL (1.7-8.2); BASOPHILS % (AUTO) 0.5 % (0-2); EOSINOPHILS % (AUTO) 0.3 % (0-6); HEMATOCRIT 44.8 % (37.9-51.0); HEMOGLOBIN 15.8 g/dL (13.5-17.0); LYMPHOCYTES % (AUTO) 11.4 % (13-45); MEAN CORPUSCULAR HEMOGLOBIN 33.2 pg (27.0-33.4); MEAN CORPUSCULAR HGB CONC 35.2 g/dL (32.0-36.0); MEAN CORPUSCULAR VOLUME 94 fl (80-97); MONOCYTES % (AUTO) 7.7 % (3-13); PLATELET COUNT 234 10^3/uL (150-450); RED BLOOD COUNT 4.75 10^6/uL (4.35-5.55); RED CELL DISTRIBUTION WIDTH 13.5 % (11.5-14.0); SEGMENTED NEUTROPHILS % (AUTO) 80.1 % (42-78); TOTAL CELLS COUNTED % (AUTO) 100 %; WHITE BLOOD COUNT 9.8 10^3/uL (4.0-10.5)
[2019-10-21] MEDS ORDERED: MORPHINE SULFATE 10 MG/ML INJ IV ONE (12:53)
[2019-10-21] MEDS ORDERED: ONDANSETRON HCL INJ/PF 4 MG/2 ML SDV IV ONE (12:53)
[2019-10-21 13:01] LABS: ALBUMIN 4.5 g/dL (3.5-5.0); ALKALINE PHOSPHATASE 154 U/L (38-126); ANION GAP 12 (5-19); ASPARTATE AMINO TRANSFERASE 85 U/L (17-59); BILIRUBIN,DIRECT 0.4 mg/dL (0.0-0.4); BILIRUBIN,TOTAL 0.7 mg/dL (0.2-1.3); BLOOD UREA NITROGEN 19 mg/dL (7-20); CALCIUM 9.6 mg/dL (8.4-10.2); CARBON DIOXIDE 25 mmol/L (22-30); CHLORIDE 87 mmol/L (98-107); GLUCOSE 139 mg/dL (75-110); POTASSIUM 4.6 mmol/L (3.6-5.0); TOTAL PROTEIN 8.2 g/dL (6.3-8.2)
[2019-10-21 13:08] LABS: VENOUS BLOOD BASE EXCESS 1.3 mmol/L; VENOUS BLOOD HCO3 25.5 mmol/L (20-32); VENOUS BLOOD PH 7.43 (7.30-7.42)
--- NOTE | 2019-10-21 13:23 | RADIOLOGY REPORT (SQ) ---
EXAM DESCRIPTION: CHEST 2 VIEWS COMPLETED DATE/TIME: 10/21/2019 1:11 pm REASON FOR STUDY: SOB, lung mass COMPARISON: CT chest 10/13/2019 [facility] Radiology Chest films 09/19/2019, 09/17/2019 EXAM PARAMETERS: NUMBER OF VIEWS: two views TECHNIQUE: Digital Frontal and Lateral radiographic views of the chest acquired. RADIATION DOSE: NA LIMITATIONS: none FINDINGS: LUNGS AND PLEURA: Persistent dense postobstructive consolidation and volume loss in the ri ght upper lobe. Volume loss right hemithorax from partial collapse right lung. No right pleural eff usion or pneumothorax. On the left side, lung is well inflated without focal infiltrates. No pleural effusion. No pneumoth orax. MEDIASTINUM AND HILAR STRUCTURES: Right hilar and mediastinal fullness from mass/adenopathy. HEART AND VASCULAR STRUCTURES: Heart normal size. No evidence for failure. BONES: No acute findings. HARDWARE: None in the chest. OTHER: No other significant finding. IMPRESSION: Persistent right upper lobe partial collapse and consolidation from postobstructive righ t hilar/mediastinal mass. Findings are similar compared to previous studies from September 2019 TECHNICAL DOCUMENTATION: JOB ID: [id number] [employer]- All Rights Reserved Reading location - IP/workstation name: [email or web address]
--- NOTE | 2019-10-21 14:20 | RADIOLOGY REPORT (SQ) ---
EXAM DESCRIPTION: CT ABD/PELVIS WITH IV ONLY COMPLETED DATE/TIME: 10/21/2019 1:48 pm REASON FOR STUDY: epigastric abd pain, nausea, SOB, liver masses COMPARISON: CT chest 10/15/2019. Abdominal CT 2018. TECHNIQUE: CT scan of the abdomen and pelvis performed using helical scanning technique with dynamic intravenous contrast injection. No oral contrast. Images reviewed with lung, soft tissue, and bone windows. Reconstructed coronal and sagittal MPR images reviewed. Delayed images for evaluation of the urinary system also acquired. All images stored on PACS. All CT scanners at this facility use dose modulation, iterative reconstruction, and/or weight based d osing when appropriate to reduce radiation dose to as low as reasonably achievable (ALARA). [facility]: Dose Right [facility]: CareDose [facility]: Dose Right [facility]: Teradose 4D [facility]: AltspaceVR CONTRAST TYPE AND DOSE: contrast/concentration: Isovue 300.00 mg/ml; Total Contrast Delivered: 96.0 ml; Total Saline Delivered: 49.0 ml RENAL FUNCTION: GFR > 60. RADIATION DOSE: CT Rad equipment meets quality standard of care and radiation dose reduction techniq ues were employed. CTDIvol: 16.2 - 17.8 mGy. DLP: 3047 mGy-cm.. LIMITATIONS: None. FINDINGS: LOWER CHEST: Slightly improved right basilar aeration. Includes masslike airspace disease in the right middle lobe which is incompletely evaluated. Patchy right lower lobe volume loss and i nfiltrate looks improved. Left lung base remains clear. LIVER: Diffuse innumerable masses throughout the liver which has a macro nodular appearance. Consist ent with widespread liver metastatic disease. Small portal nodes measure up to 1.7 cm in short axis. SPLEEN: Normal size. No focal lesions. PANCREAS: No masses. No significant calcifications. No adjacent inflammation or peripancreatic fluid collections. Pancreatic duct not dilated. GALLBLADDER: No identified stones by CT criteria. No inflammatory changes to suggest cholecystitis. ADRENAL GLANDS: 1.8 cm ovoid right adrenal mass is not seen in 2018, presumably a metastatic lesion. RIGHT KIDNEY AND URETER: Surgically absent. LEFT KIDNEY AND URETER: No solid masses. No significant calcification. No hydronephrosis or hydrouret er. AORTA AND VESSELS: No aneurysm. No dissection. Renal arteries, SMA, celiac without stenosis. RETROPERITONEUM: No retroperitoneal adenopathy, hemorrhage or masses. BOWEL AND PERITONEAL CAVITY: Distal colonic diverticulosis. Proximal colonic diverticulosis. No act danna inflammatory changes. No evidence of bowel obstruction or abnormal gas. APPENDIX: Normal. PELVIS: No mass. No free fluid. Normal bladder. ABDOMINAL WALL: No masses. No hernias. BONES: No significant or acute findings. OTHER: No other significant finding. IMPRESSION: 1. Widespread liver metastatic disease. 2. Right adrenal metastasis. 3. Right basilar lung findings, probably improved compared to chest study from last month but incompl etely evaluated. TECHNICAL DOCUMENTATION: JOB ID: [id number] Quality ID # [id number]: Final reports with documentation of one or more dose reduction techniques (e.g., Au tomated exposure control, adjustment of the mA and/or kV according to patient size, use of iterative reconstruction technique) 2010 [employer]- All Rights Reserved Reading location - IP/workstation name: [email or web address]
--- NOTE | 2019-10-21 14:44 | ER Document Report ---
ED General - General Chief Complaint: Shortness Of Breath Stated Complaint: SHORT OF BREATH Primary Care Provider: DALJIT GOMEZ PA-C [Primary Care Provider] - Follow up as needed Notes: 59-year-old male presents the emergency department complaining of epigastric abdominal pain for the past 3 days associated with shortness of breath for the p ast several weeks but acutely worse for the past 1 week with a significantly decreased exercise tolerance. Patient was admitted within the past month and treated for pneumonia but then discovered to have a lung mass as an outpatient with metastatic lesions to his liver as well. Patient is currently undergoing an outpatient work-up to determine exact etiology of the lung mass and liver lesions. He has an interventional radiology biopsy scheduled for tomorrow and a PET scan scheduled for Friday. He is following with Dr. Delgado. Patient came in today partially because of the increased pain and he has no pain medications at home beyond Aleve and partially due to his shortness of breath to see if there is anything else we can do to make him feel better. Patient was not hypoxic during outpatient visits to Dr. Delgado's office although he does feel better here wearing oxygen. TRAVEL OUTSIDE OF THE [place] IN LAST 30 DAYS: No - Related Data Allergies/Adverse Reactions: ibuprofen Adverse Reaction (Mild, Verified 09/17/19 17:13) Hives hydromorphone HCl [From Dilaudid] Adverse Reaction (Unknown, Verified 11/24/15 20:19) Nausea Past Medical History - General Information source: Patient - Social History Smoking Status: Current Every Day Smoker Chew tobacco use (# tins/day): No Frequency of alcohol use: Has a history of heavy alcohol use, quit drinking. Drug Abuse: Marijuana Family History: CAD, Hypertension, Other - Brother, mother Patient has suicidal ideation: No Patient has homicidal ideation: No - Past Medical History Cardiac Medical History: Reports: Hx Coronary Artery Disease, Hx Hypercholesterolemia, Hx Hypertension Denies: Hx Heart Attack Pulmonary Medical History: Reports: Hx COPD Denies: Hx Asthma, Hx Bronchitis, Hx Pneumonia Neurological Medical History: Denies: Hx Cerebrovascular Accident, Hx Seizures Endocrine Medical History: Denies: Hx Diabetes Mellitus Type 2 GI Medical History: Denies: Hx Gastroesophageal Reflux Disease Musculoskeletal Medical History: Denies Hx Arthritis Psychiatric Medical History: Reports: Hx Depression Past Surgical History: Reports: Hx Kidney (Renal Surgery) - right nephrectomy, Other - Right nephrectomy - Immunizations Hx Diphtheria, Pertussis, Tetanus Vaccination: No Review of Systems - Review of Systems Constitutional: See HPI, Weakness. denies: Chills, Diaphoresis, Fever EENT: No symptoms reported Cardiovascular: See HPI, Dyspnea. denies: Chest pain - Right side of his chest hurts and the pain radiates to the shoulder., Orthopnea Respiratory: See HPI, Cough, Short of breath. denies: Hemoptysis Gastrointestinal: See HPI, Abdominal pain, Rectal bleeding -: Yes All other systems reviewed and negative Physical Exam - Vital signs Vitals: Resp Pulse Ox 26 H 97 10/21/19 12:35 10/21/19 12:35 Interpretation: Tachypneic - Notes Notes: GENERAL: Alert, interacts well. No acute distress. HEAD: Normocephalic, atraumatic EYES: Pupils equal, round and reactive to light, extraocular movements intact. ENT: Oral mucosa moist, tongue midline. NECK: Full range of motion, supple, trachea midline. LUNGS: Clear to auscultation bilaterally, no wheezes, rales or rhonchi, no respiratory distress. HEART: Regular rate and rhythm, no murmurs, gallops, rubs. ABDOMEN: Soft, epigastric tenderness to palpation, right and left upper quadrant tenderness palpation, nondistended but there is some muscle spasm palpable specifically in the left upper quadrant that resolves after 30 seconds to a minute, bowel sounds present in all 4 quadrants. EXTREMITIES: Moves all 4 extremities spontaneously, no edema, radial and dorsalis pedis pulses 2/4 bilaterally. No cyanosis. NEUROLOGICAL: Alert and oriented x3, normal speech. PSYCH: Normal mood, normal affect. SKIN: Warm, Dry, normal turgor. Course - Re-evaluation Re-evalutation: 10/21/19 18:24 CBC unremarkable, venous blood gas very slightly alkalotic, CMP does show low sodium at 124.2, this is decreased over the past month, lactic acid elevated at 2.4, repeat lactic acid is normalized at 1.4, no signs of sepsis whatsoever, AST, ALT and alkaline phosphatase are all elevated however this is consistent with liver mets, ammonia is normal, troponin normal, lipase normal, pain is well controlled with 50 mg of oral morphine. Abdomen/Pelvis CT 10/21/19 12:51 IMPRESSION: 1. Widespread liver metastatic disease. 2. Right adrenal metastasis. 3. Right basilar lung findings, probably improved compared to chest study from last month but incompletely evaluated. Chest X-Ray 10/21/19 12:51 IMPRESSION: Persistent right upper lobe partial collapse and consolidation from postobstructive right hilar/mediastinal mass. Findings are similar compared to previous studies from September 2019 Patient was ambulated around the emergency department with out oxygen, lowest his oxygen went was 88% and he rebounded quickly. At present patient does not have a strong need for home O2 as he rebounds quickly and he is not hypoxic on room air although he may develop a stronger need for oxygen at a later date. Discussed with patient and family member that he is set up for a biopsy tomorrow to trying to determine exactly what type of cancer is present and this is the #1 thing that is needed to guide his treatment and to inform his prognosis. At this time I discussed with the family, the patient and Dr. Delgado a proposed plan to treat his pain with oral morphine as recommended by Dr. Delgado, continue with the outpatient work-up as tolerated and to return to the emergency department should his shortness of breath worsen, his pain be uncontrolled or he develops any new or concerning symptoms. Family, patient and Dr. Delgado are all agreeable to this plan. Patient will be discharged home. - Vital Signs Vital signs: Temp Pulse Resp BP Pulse Ox 17 128/80 H 95 10/21/19 15:01 10/21/19 15:01 10/21/19 15:01 - Laboratory Result Diagrams: 10/21/19 12:22 10/21/19 12:22 Laboratory results interpreted by me: 10/21/19 10/21/19 10/21/19 12:22 12:22 12:22 Lymph % (Auto) 11.4 L Seg Neutrophils % 80.1 H VBG pH Sodium 124.2 L Chloride 87 L Glucose 139 H Lactic Acid 2.4 H AST 85 H ALT 103 H Alkaline Phosphatase 154 H 10/21/19 12:22 Lymph % (Auto) Seg Neutrophils % VBG pH 7.43 H Sodium Chloride Glucose Lactic Acid AST ALT Alkaline Phosphatase - EKG Interpretation by Me Additional EKG results interpreted by me: 10/21/19 18:27 EKG shows sinus rhythm at a rate of 75, normal axis, normal intervals, no ST segment elevations or depressions, no T wave inversions per my interpretation. Discharge - Discharge Clinical Impression: Metastatic disease, Upper abdominal pain, Right-sided chest pain, Hyponatremia, Right-sided lung mass Condition: Stable Disposition: HOME, SELF-CARE Additional Instructions: Please take the morphine 1/2 tablet 1 tablet every 4 hours as needed. If you are not having pain do not take the morphine. This is potentially addicting. Please keep your appointment for your biopsy tomorrow, call Dr. Delgado's office tomorrow morning to discuss arranging a follow-up appointment and having your low sodium checked in approximately 1 week. Do not skip your PET scan appointment. Please restrict your fluid intake. Please record all the fluid that you eat or drink in the day including soups, coffee or just plain water. Do not take in more than 1 L of fluid in a day. Prescriptions: Morphine Sulfate [Morphine Ir 15 Mg Tablet] 7.5 - 15 mg PO Q4HP PRN #30 tablet PRN Reason: Referrals: DALJIT GOMEZ PA-C [Primary Care Provider] - Follow up as needed
[2019-10-21] MEDS ORDERED: MORPHINE SULFATE IR 15 MG TABLET PO ONE (16:47)
--- NOTE | 2019-10-21 17:23 | EKG REPORT ---
SEVERITY:- NORMAL ECG - SINUS RHYTHM : Confirmed by: Salazar Lawson MD 21-Oct-2019 17:22:25
[2019-10-21 18:52] VITALS: BP 123/77
== END 2019-10-21 18:52 | disposition home or self-care (01) ==
LOC: ER 12:08
DX: C78.7 Secondary malignant neoplasm of liver and intrahepatic bile duct (principal); C79.71 Secondary malignant neoplasm of right adrenal gland; R91.8 Other nonspecific abnormal finding of lung field; E87.1 Hypo-osmolality and hyponatremia; R07.9 Chest pain, unspecified; R10.13 Epigastric pain; M62.838 Other muscle spasm; R10.816 Epigastric abdominal tenderness; R10.811 Right upper quadrant abdominal tenderness; R10.812 Left upper quadrant abdominal tenderness; K62.5 Hemorrhage of anus and rectum; J44.9 Chronic obstructive pulmonary disease, unspecified; R06.02 Shortness of breath; R05 Cough; F17.200 Nicotine dependence, unspecified, uncomplicated; I25.10 Atherosclerotic heart disease of native coronary artery without angina pectoris; I10 Essential (primary) hypertension; F12.10 Cannabis abuse, uncomplicated; Z90.5 Acquired absence of kidney
CPT/HCPCS: 93005; 99285; 96374; 96375; 36415; 87040; 82140; 83605; 83690; 85025; 80053; 84484; 82803; 71046; 74177; 93010; J2270; J2405

== ENCOUNTER 2019-10-22 08:43 | Day surgery (SDC) | payer OTHER ==
[2019-10-22 09:27] LABS: INTERNATIONAL RATION (INR) 0.95; PROTHROMBIN TIME 12.7 SEC (11.4-15.4)
[2019-10-22 09:28] LABS: PARTIAL THROMBOPLASTIN TIME 26.1 SEC (23.5-35.8)
[2019-10-22] MEDS ORDERED: MIDAZOLAM 2 MG/2 ML INJ ONE (10:46)
[2019-10-22] MEDS ORDERED: FENTANYL CITRATE INJ/PF 100 MCG/2 ML AMPUL ONE (10:47)
--- NOTE | 2019-10-22 12:30 | RADIOLOGY REPORT (SQ) ---
EXAM DESCRIPTION: CT BIOPSY LIVER; CT NEEDLE PLACEMENT COMPLETED DATE/TIME: 10/22/2019 11:37 am; 10/22/2019 11:36 am REASON FOR STUDY: OTHER SPECIFIED DISEASES OF LIVER; OTHER SPECIFIED DISEASES OF LIVER, LIVER BIOPSY K76.89 OTHER SPECIFIED DISEASES OF LIVER R91.1 SOLITARY PULMONARY NODULE COMPARISON: 10/21/2019 TECHNIQUE: After obtaining informed consent and explaining the risks and benefits of conscious sedat ion,the patient agreed to the procedure. The patient was brought to the CT suite and was placed supin e on the CT gurney. The patient was prepped and draped in the usual sterile fashion. Axial images we re obtained for targeting of themultiple hypodense right hepatic lobe lesions. An appropriate access site was selected. IV conscious sedation was administered and physician direction by the javier rodriguez using 1 milligrams of Versed and 75 micrograms of fentanyl. Physiologic monitoring was provided before, during, and after sedation. The total sedation time was 30 minutes. Documentation face to face time, the performing proceduralist, spent monitoring the patient: [address] of the liver was performed to localize an approach for the biopsy of the multifocal hypodense right hepatic lobe lesions. A percutaneous site was marked. Time out was performed. After skin prep and local lidocaine for skin and deep tissue anesthesia, a coaxial biopsy needle sys tem was used to obtain several cores of tissue from the right hepatic lobe . These were submitted to the lab in formalin. No immediate postprocedure complications. Total of 10.[address] fluoro was used. 3 CT Fluoroscopic images were obtained and saved to PACS. All CT scanners at this facility use dose modulation, iterative reconstruction, and/or weight based d osing when appropriate to reduce radiation dose to as low as reasonably achievable (ALARA). [facility]: Dose Right [facility]: CareDose [facility]: Dose Right [facility]: Teradose 4D [facility]: [employer] RADIATION DOSE: CT Rad equipment meets quality standard of care and radiation dose reduction techniq ues were employed. CTDIvol: 4.0 - 20.4 mGy. DLP: 708 mGy-cm. mGy. LIMITATIONS: None. FINDINGS: CT guided liver biopsy as detailed above. IMPRESSION: CT GUIDED BIOPSY OF THE MULTIFOCAL HYPODENSE RIGHT HEPATIC LOBE LESIONS ABOVE. PATH OLOGY PENDING. NO IMMEDIATE COMPLICATIONS. COMMENT: Patient medication list reviewed:Yes- Quality ID# [id number]:Eligible professional attests to docu menting in the medical record they obtained, updated, or reviewed the patient's current medications.. Quality ID 145: Final reports for procedures using fluoroscopy that document radiation exposure [place], or exposure time and number of fluorographic images (if radiation exposure indices are not avail able) TECHNICAL DOCUMENTATION: JOB ID: [id number] Quality ID # [id number]: Final reports with documentation of one or more dose reduction techniques (e.g., A utomated exposure control, adjustment of the mA and/or kV according to patient size, use of iterative reconstruction technique) 2010 [employer]- All Rights Reserved Reading location - IP/workstation name: [email or web address]
[2019-10-22 13:19] VITALS: BP 148/97
== END 2019-10-22 13:35 | disposition home or self-care (01) ==
LOC: RAD 08:43
PROVIDERS: ATTEND Internal Medicine Hematology & Oncology
DX: K76.89 Other specified diseases of liver (principal); R91.1 Solitary pulmonary nodule; J44.9 Chronic obstructive pulmonary disease, unspecified; I25.10 Atherosclerotic heart disease of native coronary artery without angina pectoris; E78.5 Hyperlipidemia, unspecified; I10 Essential (primary) hypertension; Z88.5 Allergy status to narcotic agent; F17.210 Nicotine dependence, cigarettes, uncomplicated; Z79.02 Long term (current) use of antithrombotics/antiplatelets; Z79.899 Other long term (current) drug therapy
CPT/HCPCS: 36415; 85610; 85730; 88342 ×2; 88341 ×2; 88305 ×2; 77012; 47000; J2250; J3010

== ENCOUNTER → 2019-10-26 | Outpatient (CLI) | payer OTHER ==
--- NOTE | 2019-10-26 16:23 | RADIOLOGY REPORT (SQ) ---
EXAM DESCRIPTION: PET CT SKULL/THIGH COMPLETED DATE/TIME: 10/26/2019 2:44 pm REASON FOR STUDY: J98.4 OTHER DISORDERS OF LUNG R91.1 SOLITARY PULMONARY NODULE COMPARISON: CT abdomen and pelvis dated 10/21/2019, CTA chest dated 04/25/2018 RADIONUCLIDE AND DOSE: 9.17 mCi F18 FDG The route of agent administration: Intravenous FASTING BLOOD SUGAR: 122 mg/dl CONTRAST TYPE AND DOSE: No CT contrast given. TECHNIQUE: Blood glucose level was verified. Above dose of FDG was injected intravenously. 2-D seg mented attenuation correction images were obtained from the base of the skull to the midthighs. Nonc ontrast CT images were obtained for attenuation correction and fusion with emission images. CT image s were performed without oral or intravenous contrast and are not sensitive for parenchymal lesions. A series of overlapping emission PET images were obtained. Images reviewed and manipulated at [facility] work station by the radiologist. Images stored on PACS. LIMITATIONS: None. FINDINGS: HEAD AND NECK: No areas of abnormal metabolic activity in the soft tissues of the head and neck. CHEST: There is pathologic mediastinal adenopathy. SUVs are as high as 7. There is a subpleural lef t upper lobe nodule is a SUV of 4.9. There is a subpleural nodule in the medial aspect of the right upper lobe with an SUV of greater than 9. Subpleural wedge-shaped opacity in the right base demonstr ates activity just above baseline. Extensive mediastinal and subcarinal adenopathy. Postobstructive atelectasis or pneumonia in the right base with increased metabolic activity is well. SUV measures up to 9.2. ABDOMEN AND PELVIS: Widespread metastatic disease throughout the liver. No abnormal uptake in the ri ght adrenal gland. PROXIMAL LOWER EXTREMITIES: No areas of abnormal metabolic activity in the soft tissues of the lower extremities. BONES: Widespread bony metastatic disease. ADDITIONAL CT FINDINGS: No additional significant findings on the noncontrast CT images. OTHER: No other significant findings. IMPRESSION: Widespread metastatic disease including the mediastinum, hilar regions and lung be da silva. There is widespread metastatic disease throughout the liver. Numerous bony metastases. TECHNICAL DOCUMENTATION: JOB ID: [id number] 2010 [employer]- All Rights Reserved Reading location - IP/workstation name: [email or web address]
== END ==
LOC: RAD 11:20
PROVIDERS: ATTEND Internal Medicine Hematology & Oncology
DX: R91.1 Solitary pulmonary nodule (principal); J98.4 Other disorders of lung; C78.7 Secondary malignant neoplasm of liver and intrahepatic bile duct; C79.51 Secondary malignant neoplasm of bone
CPT/HCPCS: 78815; A9552

== ENCOUNTER → 2019-10-27 | Outpatient (CLI) | payer OTHER ==
--- NOTE | 2019-10-27 11:13 | RADIOLOGY REPORT (SQ) ---
EXAM DESCRIPTION: MRI HEAD COMBO COMPLETED DATE/TIME: 10/27/2019 10:08 am REASON FOR STUDY: LUNG MASS R91.1 SOLITARY PULMONARY NODULE COMPARISON: MRI dated 11/23/2015 TECHNIQUE: Multiplanar imaging includes noncontrasted T1, T2, FLAIR, diffusion with ADC map and post gadolinium contrast T1 sequences. Images stored on PACS. CONTRAST TYPE AND DOSE: 20 mL Dotarem. RENAL FUNCTION: Not indicated. ACR Type II contrast agent associated with few, if any, unconfounded cases of NSF LIMITATIONS: None. FINDINGS: ANATOMY: No anomalies. Normal vascular flow voids. Pituitary fossa normal. CSF SPACES: Normal in size and contour. No hemorrhage. CEREBRUM: Sulci and gyri normal in size and contour. Normal white matter signal on FLAIR imaging. No evidence of hemorrhage, mass, or extraaxial fluid collection. No abnormal enhancement post contrast. POSTERIOR FOSSA: No signal alteration. No hemorrhage. No edema, masses, or mass effect. Internal jordan tory canals, cerebellopontine angles, mastoids normal. No enhancing lesions. No abnormal enhancement post contrast. DIFFUSION IMAGING: Negative for acute or subacute infarction. ORBITS: No masses. Globes normal. PARANASAL SINUSES: No fluid levels. Mucosa normal. OTHER: There is persistent opacification in the right mastoid air cells unchanged from prior exam. IMPRESSION: No evidence of intracranial metastatic disease. Persistent opacification of the right m astoid air cell stable from 2016. EVIDENCE OF ACUTE STROKE: NO. TECHNICAL DOCUMENTATION: JOB ID: [id number] 2010 [employer] All Rights Reserved Reading location - IP/workstation name: [email or web address]
== END ==
LOC: RAD 09:13
PROVIDERS: ATTEND Internal Medicine Hematology & Oncology
DX: R91.1 Solitary pulmonary nodule (principal)
CPT/HCPCS: 70553; A9576

== ENCOUNTER 2019-11-10 11:13 | Day surgery (SDC) | payer OTHER ==
[~2019-11-10 11:13] MED LIST: CEFAZOLIN 1 GM/D5W RTU 1 GM/50 ML RTUPB IV ONE; FENTANYL CITRATE INJ/PF 100 MCG/2 ML AMPUL ONE; LIDOCAINE 1%/EPINEPHRINE INJ 20 ML VIAL ONE; MIDAZOLAM 2 MG/2 ML INJ ONE; ONDANSETRON HCL INJ/PF 4 MG/2 ML SDV ONE; PROPOFOL INJ 200 MG/20 ML VIAL IV ONE
[2019-11-10] MEDS ORDERED: ALBUTEROL SULFATE 0.083% NEB 2.5 MG/3 ML AMPUL NEB ONE (12:01)
[2019-11-10 12:12] LABS: HEMATOCRIT 40.9 % (37.9-51.0); HEMOGLOBIN 14.7 g/dL (13.5-17.0); MEAN CORPUSCULAR HEMOGLOBIN 33.8 pg (27.0-33.4); MEAN CORPUSCULAR HGB CONC 35.9 g/dL (32.0-36.0); MEAN CORPUSCULAR VOLUME 94 fl (80-97); PLATELET COUNT 217 10^3/uL (150-450); RED BLOOD COUNT 4.35 10^6/uL (4.35-5.55); RED CELL DISTRIBUTION WIDTH 14.3 % (11.5-14.0); WHITE BLOOD COUNT 7.1 10^3/uL (4.0-10.5)
[2019-11-10] MEDS ORDERED: FENTANYL CITRATE INJ/PF 100 MCG/2 ML AMPUL IV PRN ×3 (13:20)
[2019-11-10] MEDS ORDERED: MORPHINE SULFATE 10 MG/ML INJ IV PRN (13:20)
[2019-11-10] MEDS ORDERED: DIPHENHYDRAMINE HCL 50 MG/ML VIAL IV PRN (13:20)
[2019-11-10] MEDS ORDERED: ONDANSETRON HCL INJ/PF 4 MG/2 ML SDV IV PRN (13:20)
[2019-11-10] MEDS ORDERED: MEPERIDINE HCL/PF INJ 25 MG/1 ML DISP.SYRIN IV PRN (13:20)
--- NOTE | 2019-11-10 13:52 | Operative Report ---
Operative Report DATE OF SURGERY: 11/10/19 PREOPERATIVE DIAGNOSIS: Small cell carcinoma POSTOPERATIVE DIAGNOSIS: Same OPERATION: 1. Focused ultrasound left neck. 2. Ultrasound directed insertion of single-lumen port left subclavian position with catheter threaded into the left internal jugular vein. 3. Interpretation of intraoperative fluoroscopy. SURGEON: ERICK CHASE ANESTHESIA: LMAC TISSUE REMOVED OR ALTERED: None COMPLICATIONS: None ESTIMATED BLOOD LOSS: Minimal INTRAOPERATIVE FINDINGS: See below PROCEDURE: Patient was taken to the preop holding area to the main operating room where LMAC anesthesia was induced. Placed in the supine position arms tucked, left neck and left chest wall prepped and draped sterile fashion Surgical plan and surgical timeout were conducted. The left neck was scanned with a variable frequency linear transducer. The left internal jugular vein was felt to be suitable for cannulation. Skin was anesthetized 1% plain lidocaine, 15 blade used to enter the skin, and using ultrasound as a guide, the micro needle and wire were threaded into what was believed at time of insertion to be the left internal jugular vein. A suitable site for placement of the port was chosen in the left subclavian position. The skin was anesthetized with 1% plain lidocaine. A 3 cm incision was made with a knife, 15 blade, and a port pocket developed large enough to accommodate a dual-chamber port was achieved. The catheter was then trimmed to the appropriate length, tunneled between the 2 incisions, attached to the port with the plastic ring. The port tucked into the left subclavian pocket. We now did the micro introducer sheath over the micro wire, but the blood flowing out of the microcatheter was pulsatile. I felt that the position of the micro introducer was in the carotid artery and not the left internal jugular vein. Therefore this micro introducer sheath was removed. Direct pressure was held on the neck. There was no hematoma. We now brought onto the field the 18- gauge needle and threaded this into the left internal jugular vein, the conventional guidewire was threaded into position. Fluoroscopically the wire was ending in the superior vena cava. We now threaded over the guidewire at the 8 Romanian dilator introducer sheath. Wire and dilator removed, leaving the strip away sheath in position. The catheter fragment was threaded into the strip away sheath, sheath removed, and catheter found on fluoroscopic guidance to be in satisfactory position. There was no kinking of the catheter. There was excellent blood flow through the chamber of the port using a Donohue needle. Hemostasis is excellent. Again left neck inspected for hematoma there was none. We closed all incisions with 3-0 Vicryl, benzoin and Steri-Strips. Patient tolerated procedure well, taken recovery in stable condition.
--- NOTE | 2019-11-10 13:55 | Discharge Summary ---
Discharge Summary (SDC) - Discharge Final Diagnosis: Small cell carcinoma of the lung Date of Surgery: 11/10/19 Discharge Date: 11/10/19 Condition: Good Treatment or Instructions: May use catheter in 48 hours; may shower in 48 hours, allow Steri-Strips to fall off. Have patient call [place] [facility] and give verbal update on his progress in approximately 2 weeks. Patient to take home medications including narcotics for pain. Referrals: DALJIT GOMEZ PA-C [Primary Care Provider] - Discharge Diet: As Tolerated Discharge Activity: Activity As Tolerated Home Care Assistance: None Needed Report the Following to Your Physician Immediately: Shortness of Breath, Increase in Pain, Fever over 101 Degrees
--- NOTE | 2019-11-10 15:06 | RADIOLOGY REPORT (SQ) ---
EXAM DESCRIPTION: FLUORO/CV PLACEMENT COMPLETED DATE/TIME: 11/10/2019 2:21 pm REASON FOR STUDY: PORTACATH PLACEMENT LEFT SIDE ASSISTED WITH FLUOROSCOPY IN OR R91.8 OTHER NONSPEC IFIC ABNORMAL FINDING OF LUNG FIELD COMPARISON: None. FLUOROSCOPY TIME: 0.5 minutes 3 images saved to PACS. TECHNIQUE: Intra-operative images acquired during surgical procedure to evaluate progress. NUMBER OF IMAGES: 3 LIMITATIONS: None. FINDINGS: Left-sided port tip overlying SVC. IMPRESSION: IMAGE(S) OBTAINED DURING PROCEDURE. COMMENT: Quality ID 145: Final reports for procedures using fluoroscopy that document radiation exp osure indices, or exposure time and number of fluorographic images (if radiation exposure indices are not available) Please consult full operative report of the attending physician for description of the procedure. TECHNICAL DOCUMENTATION: JOB ID: [id number] 2010 [employer]- All Rights Reserved Reading location - IP/workstation name: [email or web address]
[2019-11-10 16:14] VITALS: BP 124/75
== END 2019-11-10 16:00 | disposition home or self-care (01) ==
LOC: OROUT 11:13
PROVIDERS: ATTEND Surgery
DX: C34.90 Malignant neoplasm of unspecified part of unspecified bronchus or lung (principal); J44.9 Chronic obstructive pulmonary disease, unspecified; R06.02 Shortness of breath; C78.7 Secondary malignant neoplasm of liver and intrahepatic bile duct; Z79.899 Other long term (current) drug therapy; I25.10 Atherosclerotic heart disease of native coronary artery without angina pectoris; E78.5 Hyperlipidemia, unspecified; I10 Essential (primary) hypertension; F17.210 Nicotine dependence, cigarettes, uncomplicated; Z86.73 Personal history of transient ischemic attack (TIA), and cerebral infarction without residual deficits; Z90.5 Acquired absence of kidney; Z88.5 Allergy status to narcotic agent
CPT/HCPCS: 36415; 85027; 77001; 00532; 36561; C1752; C1788; J2250; J0690; J3010; J3490; J2405; J2704; J1642; 532

== ENCOUNTER 2019-11-16 07:53 | Outpatient (CLI) | payer OTHER ==
[~2019-11-16 07:53] MED LIST changes: -CEFAZOLIN 1 GM/D5W RTU 1 GM/50 ML RTUPB IV ONE; -FENTANYL CITRATE INJ/PF 100 MCG/2 ML AMPUL ONE; -LIDOCAINE 1%/EPINEPHRINE INJ 20 ML VIAL ONE; -MIDAZOLAM 2 MG/2 ML INJ ONE; +NORMAL SALINE 250 ML @ KVO IV PRN; -ONDANSETRON HCL INJ/PF 4 MG/2 ML SDV ONE; -PROPOFOL INJ 200 MG/20 ML VIAL IV ONE
[2019-11-16] MEDS ORDERED: ETOPOSIDE IV PRN (08:00)
[2019-11-16] MEDS ORDERED: PALONOSETRON 0.25 MG/5 ML VIAL IV PRN (08:00)
[2019-11-16] MEDS ORDERED: NORMAL SALINE IV PRN (08:00)
[2019-11-16] MEDS ORDERED: CARBOPLATIN 625 MG in NORMAL SALINE 500 ML IV PRN (08:00)
[2019-11-16] MEDS ORDERED: DEXAMETHASONE 10 MG in NS 50 ML IV PRN (08:00)
[2019-11-16 08:35] VITALS: BP 118/73
[2019-11-16 09:07] LABS: ALBUMIN 3.4 g/dL (3.5-5.0); ALKALINE PHOSPHATASE 319 U/L (38-126); ANION GAP 6 (5-19); ASPARTATE AMINO TRANSFERASE 226 U/L (17-59); BILIRUBIN,DIRECT 3.2 mg/dL (0.0-0.4); BILIRUBIN,TOTAL 4.4 mg/dL (0.2-1.3); BLOOD UREA NITROGEN 29 mg/dL (7-20); CALCIUM 9.8 mg/dL (8.4-10.2); CARBON DIOXIDE 35 mmol/L (22-30); CHLORIDE 97 mmol/L (98-107); GLUCOSE 108 mg/dL (75-110); POTASSIUM 3.8 mmol/L (3.6-5.0); TOTAL PROTEIN 6.6 g/dL (6.3-8.2)
== END 2019-11-16 12:20 | disposition home or self-care (01) ==
LOC: II 07:53 → 5TH 07:53 → II 12:20
PROVIDERS: ATTEND Internal Medicine Hematology & Oncology
DX: Z51.11 Encounter for antineoplastic chemotherapy (principal); C34.81 Malignant neoplasm of overlapping sites of right bronchus and lung
CPT/HCPCS: 36415; 80053; 96413; 96367; 96375; 96417; J9045; J9181; J7030; J7040; J1100; J2469; J1642

== ENCOUNTER 2019-11-17 09:40 | Outpatient (CLI) | payer OTHER ==
[~2019-11-17 09:40] MED LIST changes: +DEXAMETHASONE 10 MG in NS 50 ML IV PRN; +DEXAMETHASONE SOD PHOSPHATE 10 MG in NORMAL SALINE 100 ML IV PRN; +ETOPOSIDE IV PRN; +NORMAL SALINE IV PRN
[2019-11-17 10:18] VITALS: BP 109/66
== END 2019-11-17 12:31 | disposition home or self-care (01) ==
LOC: II 09:40 → 5TH 09:43 → II 12:31
PROVIDERS: ATTEND Internal Medicine Hematology & Oncology
DX: Z51.11 Encounter for antineoplastic chemotherapy (principal); C34.81 Malignant neoplasm of overlapping sites of right bronchus and lung
CPT/HCPCS: 96413; 96367; J9181; J7050; J7030; J1100; J1642

== ENCOUNTER 2019-11-18 09:50 | Outpatient (CLI) | payer OTHER ==
[~2019-11-18 09:50] MED LIST changes: -DEXAMETHASONE 10 MG in NS 50 ML IV PRN
[2019-11-18 10:23] VITALS: BP 111/67
== END 2019-11-18 12:14 | disposition home or self-care (01) ==
LOC: II 09:50 → 5TH 09:53 → II 12:14
PROVIDERS: ATTEND Internal Medicine Hematology & Oncology
DX: Z51.11 Encounter for antineoplastic chemotherapy (principal); C34.81 Malignant neoplasm of overlapping sites of right bronchus and lung
CPT/HCPCS: 96413; 96367; J9181; J7050; J7030; J1100; J1642